=== PATIENT | male | born 1970 | race Caucasian/White ===

== ENCOUNTER → 2016-08-25 | Outpatient (CLI) | payer OTHER ==
[~2016-08-25] MED LIST: ADVIN25/60 INH; ALBU1AER9 INH; AMOX875T PO; ASTN NAE; AZITTAB PO; CEPH500C PO; CHOL100010 PO; CHOLCAP5 PO; DIME1CAP2 PO; FLNIN/ NAE; GADAVIST IV PRN; LPT/40 PO; LPT40 PO; MECL1TAB42 PO; MELO15TA4 PO; METH4PAK PO; NCDT21X TD; OMEP20CA9 PO; PRED20TA PO; RANI150T2 PO; TAMS0.4C38 PO; ZNTT/150 PO
[2016-08-25 13:10] LABS: BASO % 0.3 %; BASO ABS # 0.02 K/uL (0-0.2); COMPLETE YES; EOS % 0.5 %; HEMATOCRIT 43.1 % (42-52); IG% 0.3 %; LYMPH % 19.5 %; LYMPH ABS # 1.27 K/uL (1.2-3.4); MEAN CORPUSCULAR HEMOGLOBIN 31.6 pg (25-34); MEAN CORPUSCULAR HGB CONC 35.5 g/dl (32-36); MEAN PLATELET VOLUME 11.3 fL (7.4-10.4); MONO % 9.8 %; NEUT % 69.6 %; PLATELET COUNT 220 K/uL (130-400); RED BLOOD COUNT 4.84 M/uL (4.7-6.1); WHITE BLOOD COUNT 6.51 K/uL (4.8-10.8)
[2016-08-25 13:41] LABS: ALT/SGPT 65 U/L (12-78); BLOOD UREA NITROGEN 16 mg/dl (7-18); BUN/CREATININE RATIO 17.1 (10-20); CALCIUM 9.4 mg/dl (8.5-10.1); CARBON DIOXIDE 25 mmol/L (21-32); CHLORIDE 105 mmol/L (98-107); CREATININE 0.94 mg/dl (0.60-1.40); GLUCOSE 78 mg/dl (70-99); POTASSIUM 4.1 mmol/L (3.5-5.1); SODIUM 140 mmol/L (136-145)
[2016-08-25 13:44] LABS: ALB/GLOB RATIO 1.1 (0.9-2); ALKALINE PHOSPHATASE 63 U/L (45-117); AST/SGOT 29 U/L (15-37)
--- NOTE | 2016-08-25 13:50 | DIAGNOSTIC IMAGING REPORT ---
MRI OF THE BRAIN WITHOUT AND WITH IV CONTRAST CLINICAL HISTORY: Multiple sclerosis, new onset headaches, visual disturbances. Burning sensation. COMPARISON STUDY: 08/16/2014 TECHNIQUE: MRI of the brain was performed from the vertex to the skull base utilizing various T1 and T2 weighted sequences. Following the IV administration of 8 mL of Gadavist contrast, additional enhanced images were obtained. FINDINGS: Sagittal T1, axial diffusion, proton density and T2 weighted axial, coronal FLAIR, and pre and post axial T1-weighted images were acquired. These were supplemented with post gadolinium coronal T1 weighted images. No intra or extra-axial mass lesions are visualized. Axial diffusion-weighted images reveal no evidence of acute or subacute infarction. There is no evidence of ventricular dilatation. Proton density T2-weighted and FLAIR images reveal a stable linear focus of increased T2 and FLAIR signal adjacent to the atrium of the right lateral ventricle. There are also two stable punctate foci of increased T2 signal within the left frontal white matter. No new or enlarging lesions are visualized. There are no abnormal flow voids. There is no evidence of pathologic enhancement. IMPRESSION: 1. No evidence of acute or subacute infarction 2. No evidence of intracranial mass. 3. Persistent foci of increased T2 and FLAIR signal within the left frontal white matter, and in the right optic radiations adjacent to the atrium of the right lateral ventricle. Electronically signed by: Kingston Lr M.D. 08/25/2016 1:48 PM Dictated Date/Time: 08/25/2016 1:37 PM
== END | disposition home or self-care (01) ==
LOC: C.MRI 11:45
PROVIDERS: ATTEND Psychiatry & Neurology Neurology
DX: G35 Multiple sclerosis (principal); H53.9 Unspecified visual disturbance; M54.2 Cervicalgia; R20.8 Other disturbances of skin sensation; E55.9 Vitamin D deficiency, unspecified

== ENCOUNTER 2016-09-01 20:12 | Emergency (ER) | payer OTHER ==
[~2016-09-01] VITALS: Ht 175.3 cm; Wt 86.0 kg
[~2016-09-01 20:12] MED LIST changes: -ADVIN25/60 INH; -AMOX875T PO; -ASTN NAE; -AZITTAB PO; -CEPH500C PO; -CHOLCAP5 PO; -DIME1CAP2 PO; -FLNIN/ NAE; -GADAVIST IV PRN; -LPT40 PO; -MELO15TA4 PO; -METH4PAK PO; -NCDT21X TD; -OMEP20CA9 PO; -PRED20TA PO; -RANI150T2 PO; -TAMS0.4C38 PO
[2016-09-01 20:22] VITALS: BP 120/73; TEMP 36.7; Ht 175.3 cm; Wt 86.0 kg
[2016-09-01] MEDS ORDERED: MELO15TA4 PO (20:53)
--- NOTE | 2016-09-01 21:18 | DIAGNOSTIC IMAGING REPORT ---
CHEST 2 VIEWS ROUTINE CLINICAL HISTORY: cough dyspnea COMPARISON STUDY: 05/06/2015 FINDINGS: The bones soft tissues and hemidiaphragms are normal. The cardiomediastinal silhouette is normal. The lungs are clear. The pulmonary vasculature is normal. IMPRESSION: Negative chest. Electronically signed by: Rolf Gomez M.D. 09/01/2016 9:17 PM Dictated Date/Time: 09/01/2016 9:16 PM
--- NOTE | 2016-09-01 22:35 | DIAGNOSTIC IMAGING REPORT ---
SINUS CT CT DOSE: 754.51 mGy.cm HISTORY: Pain chronic sinus pressure, hx sinus surgery TECHNIQUE: Multiaxial CT images of the paranasal sinuses were performed and reformatted in the coronal plane without the use of contrast. COMPARISON: 06/17/2008 FINDINGS: The sphenoid sinuses are clear. Moderate mucosal thickening of the central more significant mucosal thickening of the anterior ethmoids. Minimal polypoid change deep tendon aspect left maxillary sinus. Estimated units are patent bilaterally. There is minimal hyperplastic changes the nasal turbinates. The mastoid air cells are clear. The bilateral ostiomeatal units are patent. The orbits are unremarkable. IMPRESSION: 1. Moderate to rather significant mucosal thickening of the mid and anterior ethmoid sinuses. 2. Minimal diffuse retention cyst change left maxillary sinus. 3. Gastrostomy units are patent bilaterally. 4. No evidence for bony destructive process. Electronically signed by: Rolf Gomez M.D. 09/01/2016 10:34 PM Dictated Date/Time: 09/01/2016 10:32 PM
[2016-09-01] MEDS ORDERED: PRED20TA PO (23:10)
[2016-09-01] MEDS ORDERED: AMOX875T PO (23:10)
--- NOTE | 2016-09-01 23:11 | EMERGENCY ROOM VISIT NOTE ---
History First contact with patient: 20:38 Chief Complaint: COUGH Stated Complaint: EYE PAIN, COUGH, STUFFY NOSE Nursing Triage Summary: Patient reports productive cough x1 week with yellow/green sputum. Patient also has runny nose and pain in bilateral eyes. Denies shortness of breath. History of Present Illness The patient is a 45 year old male who presents to the Emergency Room with complaints of cough and sinus pressure for the past one week. The patient states that he has had issues with his sinuses off and on for a few months. He states that over the past week, he has had pain behind his eyes and has been coughing up yellow/green sputum. He also reports nasal congestion. He denies any shortness of breath or chest pain. He rates his overall discomfort a 4/10 and has not been taking any medication at home. The patient does report he took an antibiotic for sinusitis a few months ago, but has not had anything recently. He denies any fevers/chills, neck pain/stiffness, sore throat or earaches. Review of Systems A complete 10-point Review of Systems was discussed with the patient, with pertinent positives and negatives listed in the History of Present Illness. All remaining Review of Systems questions can be considered negative unless otherwise specified. Past Medical/Surgical History Medical Problems: (1) Acute bronchitis (2) Acute bronchitis (3) Asthma, Unspecified, W (Acute) Exacerbation (4) Bilateral inguinal hernia (5) Bronchitis (6) Bronchitis (7) Chest pain (8) Chest pain (9) Constipation (10) Cough (11) Cough (12) Depression (13) Dizziness (14) Dry socket (15) Dry socket (16) Esophageal Reflux (17) Hyperlipidemia, Unspecified (18) Lateral epicondylitis (19) Lumbago (20) MS (multiple sclerosis) (21) MS (multiple sclerosis) (22) Obsessive-Compulsive Dis (23) Pain, dental (24) Precordial chest pain (25) Sore throat (26) Tobacco abuse Family History Cancer Diabetes mellitus Heart disease Hypertension Social History Smoking Status: Current Every Day Smoker Alcohol Use: none Drug Use: none Marital Status: Housing Status: lives with family Occupation Status: unemployed, disabled Current/Historical Medications Scheduled Amoxicillin & Pot Clavulanate (Augmentin 875-125 mg), 1 TAB PO BID Atorvastatin (Atorvastatin Calcium), 40 MG PO HS Cholecalciferol (Vitamin D3), 5,000 INTER.UNIT PO DAILY Dimethyl Fumarate (Tecfidera), 240 MG PO BID Meloxicam (Meloxicam), 15 MG PO DAILY Prednisone (Prednisone), 0 PO DAILY Scheduled PRN Azelastine Hcl (Astelin Nasal [place]), 1-2 SPRAYS HENRI BID PRN for Nasal Congestion Fluticasone Propionate (Fluticasone Propionate), 1 SPRAY HENRI BID PRN for Allergy Symptoms Ranitidine HCl (Ranitidine HCl), 150 MG PO BID PRN for GI Upset Allergies Coded Allergies: No Known Allergies (Verified , 01/31/16) Physical Exam Vital Signs Date Time Temp Pulse Resp B/P Pulse Ox O2 Delivery O2 Flow Rate FiO2 09/01/16 23:29 65 18 97 09/01/16 20:22 36.7 80 20 120/73 97 Room Air Physical Exam VITALS: Vitals are noted on the nurse's note and reviewed by myself. Vital signs stable. GENERAL: This is a 45-year-old male, in no acute distress, nondiaphoretic, well- developed well-nourished. SKIN: Capillary reflex less than 2 seconds. HEENT: Normocephalic. PERRLA. EOMI. Nares patent. Bilateral maxillary sinus tenderness. Mucous membranes moist. Neck is supple without nuchal rigidity. No meningismus. HEART: Regular rate and rhythm without murmurs gallops or rubs. LUNGS: Clear to auscultation bilaterally without wheezes, rales or rhonchi. NEURO: Patient was alert and oriented to person place and time. Medical Decision & Procedures ER Provider Diagnostic Interpretation: CHEST 2 VIEWS ROUTINE FINDINGS: The bones soft tissues and hemidiaphragms are normal. The cardiomediastinal silhouette is normal. The lungs are clear. The pulmonary vasculature is normal. IMPRESSION: Negative chest. SINUS CT FINDINGS: The sphenoid sinuses are clear. Moderate mucosal thickening of the central more significant mucosal thickening of the anterior ethmoids. Minimal polypoid change deep tendon aspect left maxillary sinus. Estimated units are patent bilaterally. There is minimal hyperplastic changes the nasal turbinates. The mastoid air cells are clear. The bilateral ostiomeatal units are patent. The orbits are unremarkable. IMPRESSION: 1. Moderate to rather significant mucosal thickening of the mid and anterior ethmoid sinuses. 2. Minimal diffuse retention cyst change left maxillary sinus. 3. Gastrostomy units are patent bilaterally. 4. No evidence for bony destructive process. Medications Administered Medications (Trade) Dose Ordered Sig/Farshad Route Start Time Stop Time Status Last Admin Dose Admin Amoxicillin/ Clavulanate Potassium (Augmentin Tab) 875 mg ONE ONCE PO 09/01/16 23:15 09/01/16 23:16 DC 09/01/16 23:15 875 MG Medical Decision Differential diagnosis includes sinusitis, pneumonia, upper respiratory infection, meningitis, encephalitis, among others. The patient was hydrated as above. Chest x-ray and sinus CT were performed. Chest x-ray was negative. Sinus CT did show some significant sinus disease. The patient reports a rather significant history of sinus disease and I do feel he should follow up with an ENT. He will be placed on a course of antibiotics and steroids for his current symptoms. He was instructed to return immediately with worsening symptoms, otherwise should follow-up with his primary care provider and ENT. The patient was independently evaluated by Dr. Tucker, ED attending physician, who agreed with my assessment and treatment plan. The patient verbalized understanding of my assessment and treatment plan and was discharged home in good condition. Departure Information Dispostion Home / Self-Care Condition GOOD Prescriptions Prednisone (Prednisone) 20 Mg Tab 0 PO DAILY, #18 TAB 3 DAILY FOR 3 DAYS, THEN 2 DAILY FOR 3 DAYS, THEN 1 DAILY FOR 3 DAYS. Prov: Kathleen Carlson PA-C 09/01/16 Amoxicillin & Pot Clavulanate (Augmentin 875-125 mg) 1 Tab Tab 1 TAB PO BID for 14 Days, #28 TAB Prov: Kathleen Carlson PA-C 09/01/16 Referrals Ivan Izaguirre, D.OObey (PCP) Patient Instructions My [facility] Additional Instructions You were prescribed Augmentin to be taken twice daily as prescribed. This is an antibiotic. All antibiotics have the potential to cause diarrhea. Stop this medication and contact a medical provider if you were to develop any significant adverse side effects including: wheezing, shortness of breath, passing out, vomiting, or a diffuse rash. Always take antibiotics as directed and COMPLETE the ENTIRE course regardless of the improvement of your symptoms. Take the prednisone as prescribed. For pain control, you can use the following [id number] medicines (if >12 yo): - Regular strength (325mg/tab) Tylenol (acetaminophen) 2 tabs every 4-6 hours as needed. Do not exceed 12 tablets in a 24 hour period. Avoid taking more than 4 grams (4000 mg) of Tylenol per day. This includes any other sources of acetaminophen you may take on a regular basis. - Regular strength (200 mg/tab) Advil (ibuprofen) 1-2 tabs every 4-6 hours as needed. Do not exceed a dose of 3200 mg per day. Follow-up with your primary care provider and your ENT specialist within 1-2 weeks. Return to the emergency department with worsening pain, the worst headache of your life, neck pain/stiffness, high fevers, or any other new/concerning symptoms.
[2016-09-01] MEDS ORDERED: AMOXICILLIN/CLAVULANATE TAB 875 MG TAB PO ONE (23:15)
[2016-09-01 23:29] VITALS: PULSE 65; O2SAT 97
--- NOTE | 2016-09-01 23:37 | EMERGENCY ROOM VISIT NOTE ---
ED Visit Note First contact with patient: 20:38 I have personally seen and evaluated the patient with the physician operator/assistant foreman. I agree with the diagnostic/management decisions and have personally been involved in these decisions and agree with the diagnosis.
[2017-03-11] MEDS ORDERED: FLNIN/ NAE (01:22)
[2017-03-11] MEDS ORDERED: LPT40 PO (20:53)
[2017-03-11] MEDS ORDERED: RANI150T2 PO (20:53)
[2017-03-11] MEDS ORDERED: CHOLCAP5 PO (20:54)
[2017-03-11] MEDS ORDERED: ASTN NAE (20:56)
== END 2016-09-01 23:30 | disposition home or self-care (01) ==
LOC: C.EDB 20:13 → C.EDD 23:30
DX: R05 Cough (principal); J32.9 Chronic sinusitis, unspecified; J45.909 Unspecified asthma, uncomplicated; E78.5 Hyperlipidemia, unspecified; F32.9 Major depressive disorder, single episode, unspecified; K21.9 Gastro-esophageal reflux disease without esophagitis; G35 Multiple sclerosis; F17.200 Nicotine dependence, unspecified, uncomplicated; Z79.899 Other long term (current) drug therapy; Z80.9 Family history of malignant neoplasm, unspecified; Z83.3 Family history of diabetes mellitus; Z82.49 Family history of ischemic heart disease and other diseases of the circulatory system

== ENCOUNTER 2016-11-02 09:40 | Emergency (ER) | payer OTHER ==
[~2016-11-02] VITALS: Ht 175.3 cm; Wt 88.0 kg
[~2016-11-02 09:40] MED LIST changes: -ALBU1AER9 INH; -CHOL100010 PO; -LPT/40 PO; -MECL1TAB42 PO; +MELO15TA4 PO; +PRED20TA PO; -ZNTT/150 PO
[2016-11-02 09:42] VITALS: TEMP 36.4
--- NOTE | 2016-11-02 09:52 | EMERGENCY ROOM VISIT NOTE ---
History Report prepared by Fede: Micha Alonso Under the Supervision of: Soniya OrtizO. First contact with patient: 09:49 Chief Complaint: DIZZY Stated Complaint: DIZZY, NAUSEA History of Present Illness The patient is a 46 year old male who presents to the Emergency Room with complaints of persistent dizziness that started prior to arrival this morning. He says that he woke up feeling very nauseous as well. Per the patient's , the patient was hitting thomas. The patient says when he tried to walk he felt off balance, especially when turning his head. He felt like the room was spinning. The patient says that he may have had an episode of dizziness and nausea like this when he was much younger. He says that he has been having sinus congestion for a while now, and was put on Augmentin 3 weeks ago by his ENT doctor. His congestion was accompanied with headaches, and a bit of chest pain. His congestion has been getting better. He denies any ear aches, ear ringing, heart palpitations, or shortness of breath. The patient takes medication for multiple sclerosis and cholesterol. Source of History: patient, family Onset: Prior to arrival this morning upon waking Position: other (global - dizziness) Timing: other (persistent) Modifying Factors (Worsening): movement Associated Symptoms: + chest pain, + headache, + nausea, No SOB Note: Associated symptoms: [place] off balance. Has had sinus congestion for multiple weeks. Denies ear aches, ear ringing, heart palpitations. Review of Systems See HPI for pertinent positives & negatives. A total of 10 systems reviewed and were otherwise negative. Past Medical & Surgical Medical Problems: (1) Acute bronchitis (2) Acute bronchitis (3) Asthma, Unspecified, W (Acute) Exacerbation (4) Bilateral inguinal hernia (5) Bronchitis (6) Bronchitis (7) Chest pain (8) Chest pain (9) Constipation (10) Cough (11) Cough (12) Depression (13) Dizziness (14) Dry socket (15) Dry socket (16) Esophageal Reflux (17) Hyperlipidemia, Unspecified (18) Lateral epicondylitis (19) Lumbago (20) MS (multiple sclerosis) (21) MS (multiple sclerosis) (22) Obsessive-Compulsive Dis (23) Pain, dental (24) Precordial chest pain (25) Sore throat (26) Tobacco abuse Family History Cancer Diabetes mellitus Heart disease Hypertension Social History Smoking Status: Former Smoker Alcohol Use: none Drug Use: none Marital Status: Housing Status: lives with family Occupation Status: unemployed, disabled Current/Historical Medications Scheduled Amoxicillin & Pot Clavulanate (Augmentin 875-125 mg), 1 TAB PO BID Atorvastatin (Atorvastatin Calcium), 40 MG PO HS Cholecalciferol (Vitamin D3), 5,000 INTER.UNIT PO DAILY Dimethyl Fumarate (Tecfidera), 240 MG PO BID Meclizine Hcl (Meclizine Hcl), 1 TAB PO TID Methylprednisolone (Medrol Dosepak), 0 PO DAILY Nicotine (Nicoderm Cq 21MG Patch), 1 PATCH TD DAILY Scheduled PRN Azelastine Hcl (Astelin Nasal [place]), 1-2 SPRAYS HENRI BID PRN for Nasal Congestion Fluticasone Propionate (Fluticasone Propionate), 1 SPRAY HENRI BID PRN for Allergy Symptoms Ranitidine HCl (Ranitidine HCl), 150 MG PO BID PRN for GI Upset Allergies Coded Allergies: No Known Allergies (Verified , 11/02/16) Physical Exam Vital Signs Date Time Temp Pulse Resp B/P Pulse Ox O2 Delivery O2 Flow Rate FiO2 11/02/16 12:05 55 18 114/78 95 Room Air 11/02/16 11:00 57 14 119/77 95 Room Air 11/02/16 10:14 63 17 122/77 97 Room Air 69 124/85 86 127/81 11/02/16 10:14 67 11/02/16 10:11 95 Room Air 11/02/16 09:42 36.4 64 18 119/80 96 Room Air Physical Exam GENERAL: Patient is awake, alert, and in no acute distress. Patient is resting comfortably and showing no signs of anxiety EYES: The conjunctivae are clear. The pupils are round and reactive. EARS, NOSE, MOUTH AND THROAT: The nose is without any evidence of any deformity. Mucous membranes are moist tongue is midline TMs clear bilaterally. NECK: The neck is nontender and supple. RESPIRATORY: Normal respiratory effort is noted there is no evidence of wheezing rhonchi or rales CARDIOVASCULAR: Regular rate and rhythm noted there no murmurs rubs or gallops normal S1 normal S2 GASTROINTESTINAL: The abdomen is soft. Bowel sounds are present in all quadrants. Abdomen is nontender MUSCULOSKELETAL/EXTREMITIES: There is no evidence of gross deformity full range of motion is noted in the hips and shoulders SKIN: There is no obvious evidence of any rash. There are no petechiae, pallor or cyanosis noted. NEUROLOGIC: Patient is awake alert and oriented x3 strength is symmetric patellar reflexes are 2+ bilaterally. Rapid alternating movements were symmetric. Medical Decision & Procedures ER Provider Diagnostic Interpretation: Radiology results as stated below per my review and radiologist interpretation: CT SCAN OF THE BRAIN WITHOUT IV CONTRAST CLINICAL HISTORY: Weakness. Change in mental status. Dizziness. COMPARISON STUDY: CT of the brain dated 01/25/2007. MRI of the brain dated 08/25/2016. TECHNIQUE: Unenhanced axial CT scan of the brain is performed from the vertex to the skull base. Automated dose control exposure was utilized. CT DOSE: 537.48 mGy.cm FINDINGS: Brain parenchyma: The brain parenchyma is normal in appearance. There is no hemorrhage, mass effect, or evidence of acute territorial ischemia by CT criteria. [place]-white matter is preserved. No extra-axial fluid collection is seen. Ventricles, sulci, cisterns: Normal in configuration. Intracranial vasculature: The visualized intracranial vasculature at the skull base is normal in appearance. Calvarium: Unremarkable. Sinuses and mastoids: There is mucosal thickening present within several ethmoid sinuses. The remaining visualized paranasal sinuses are clear. The mastoid air cells are well pneumatized. Orbits: The bony orbits are grossly intact. IMPRESSION: No acute intracranial abnormality. Electronically signed by: Abilio Gonzales M.D. 11/02/2016 10:39 AM Dictated Date/Time: 11/02/2016 10:38 AM CHEST ONE VIEW PORTABLE CLINICAL HISTORY: Altered mental status. Weakness. COMPARISON STUDY: Chest radiograph September 01, 2016. FINDINGS: Lung volumes are normal. There is no consolidation. No pneumothorax or pleural effusion is present. Cardiomediastinal silhouette is normal. There is no evidence of pulmonary edema. IMPRESSION: No acute cardiopulmonary findings. Electronically signed by: Akhil Gonzalez M.D. 11/02/2016 10:14 AM Dictated Date/Time: 11/02/2016 10:14 AM Laboratory Results 11/02/16 09:51 Red Blood Count 4.63, Mean Corpuscular Volume 87.3, Mean Corpuscular Hemoglobin 30.9, Mean Corpuscular Hemoglobin Concent 35.4, Mean Platelet Volume 10.4, Neutrophils (%) (Auto) 50.0, Lymphocytes (%) (Auto) 37.0, Monocytes (%) (Auto) 10.0, Eosinophils (%) (Auto) 1.9, Basophils (%) (Auto) 0.9, Neutrophils # (Auto ) 2.16, Lymphocytes # (Auto) 1.60, Monocytes # (Auto) 0.43, Eosinophils # (Auto ) 0.08, Basophils # (Auto) 0.04 11/02/16 09:51 Test 11/02/16 09:51 11/02/16 10:09 11/02/16 11:45 White Blood Count 4.32 K/uL (4.8-10.8) Red Blood Count 4.63 M/uL (4.7-6.1) Hemoglobin 14.3 g/dL (14.0-18.0) Hematocrit 40.4 % (42-52) Mean Corpuscular Volume 87.3 fL (80-100) Mean Corpuscular Hemoglobin 30.9 pg (25-34) Mean Corpuscular Hemoglobin Concent 35.4 g/dl (32-36) Platelet Count 222 K/uL (130-400) Mean Platelet Volume 10.4 fL (7.4-10.4) Neutrophils (%) (Auto) 50.0 % Lymphocytes (%) (Auto) 37.0 % Monocytes (%) (Auto) 10.0 % Eosinophils (%) (Auto) 1.9 % Basophils (%) (Auto) 0.9 % Neutrophils # (Auto) 2.16 K/uL (1.4-6.5) Lymphocytes # (Auto) 1.60 K/uL (1.2-3.4) Monocytes # (Auto) 0.43 K/uL (0.11-0.59) Eosinophils # (Auto) 0.08 K/uL (0-0.5) Basophils # (Auto) 0.04 K/uL (0-0.2) RDW Standard Deviation 40.3 fL (36.4-46.3) RDW Coefficient of Variation 12.5 % (11.5-14.5) Immature Granulocyte % (Auto) 0.2 % Immature Granulocyte # (Auto) 0.01 K/uL (0.00-0.02) Prothrombin Time 10.6 SECONDS (9.0-12.0) Prothromb Time International Ratio 1.0 (0.9-1.1) Activated Partial Thromboplast Time 26.8 SECONDS (21.0-31.0) Partial Thromboplastin Ratio 1.0 Anion Gap 7.0 mmol/L (3-11) Est Creatinine Clear Calc Drug Dose 105.5 ml/min Estimated GFR () 110.7 Estimated GFR (Non- 95.5 BUN/Creatinine Ratio 18.3 (10-20) Calcium Level 8.8 mg/dl (8.5-10.1) Magnesium Level 2.3 mg/dl (1.8-2.4) Total Bilirubin 0.3 mg/dl (0.2-1) Direct Bilirubin < 0.1 mg/dl (0-0.2) Aspartate Amino Transf (AST/SGOT) 35 U/L (15-37) Alanine Aminotransferase (ALT/SGPT) 87 U/L (12-78) Alkaline Phosphatase 63 U/L (45-117) Troponin I < 0.015 ng/ml (0-0.045) Total Protein 7.4 gm/dl (6.4-8.2) Albumin 3.9 gm/dl (3.4-5.0) Thyroid Stimulating Hormone (TSH) 1.190 uIu/ml (0.300-4.500) Bedside Glucose 98 mg/dl (70-99) Urine Color YELLOW Urine Appearance CLEAR (CLEAR) Urine pH 7.5 (4.5-7.5) Urine Specific [place] 1.012 (1.000-1.030) Urine Protein NEG (NEG) Urine Glucose (UA) NEG (NEG) Urine Ketones NEG (NEG) Urine Occult Blood NEG (NEG) Urine Nitrite NEG (NEG) Urine Bilirubin NEG (NEG) Urine Urobilinogen NEG (NEG) Urine Leukocyte Esterase NEG (NEG) Laboratory results per my review. Medications Administered Medications (Trade) Dose Ordered Sig/Farshad Route Start Time Stop Time Status Last Admin Dose Admin Meclizine HCl (Antivert Tab) 25 mg NOW STAT PO 11/02/16 09:56 11/02/16 09:58 DC 11/02/16 10:20 25 MG ECG Indication: nausea Rate (beats per minute): 62 Rhythm: normal sinus Findings: no ectopy, other (no acute ST segment abnormalities) Change: no significant change (from May 07 2015) ED Course 0951: The patient was evaluated in room A10. A complete history and physical examination were performed. 0956: Ordered Antivert Tab 25 mg PO. 1107: I reevaluated the patient and he is resting comfortably. 1203: I discussed the patient with Dr. Marco A DING neurology. 1207:: Upon reevaluation, the patient is resting comfortably. I discussed the results and treatment plan with him. He verbalized agreement of the treatment plan. He was discharged home. Medical Decision Triage Nursing notes reviewed. Differential diagnosis: Etiologies such as benign positional vertigo, dehydration, hypovolemia, anemia, tumor, infection, hypoglycemia, electrolyte abnormalities, cardiac sources, intracerebral event, toxicologic, neurologic, as well as others were entertained. The patient is a 46-year-old male who presented to the emergency department for an evaluation of vertigo. The patient has a history of MS. His CAT scan did not show any acute disease. He was treated with meclizine in emergency department. Given the patient's history I discussed his case with his primary neurologist. At this time he feels if it is related to an MS flare that a course of steroids as well as meclizine would be a good choice and he is agreed to follow-up the patient in the office for further management and disposition. The patient had a recent MRI the brain which did not show any lesions in the posterior fossa. He may require another MRI if his symptoms do not appear to be consistent with chest unspecified vertigo or an inner ear issue. Consults Time Called: 1150 Consulting Physician: Dr. Marco A DING neurology Returned Call: 1203 I discussed the patient with Dr. Marco A DING neurology. Impression Primary Impression: Vertigo Scribe Attestation The scribe's documentation has been prepared under my direction and personally reviewed by me in its entirety. I confirm that the note above accurately reflects all work, treatment, procedures, and medical decision making performed by me. Departure Information Dispostion Home / Self-Care Prescriptions Meclizine Hcl (MECLIZINE HCL) 25 Mg Tab 1 TAB PO TID, #30 TAB Prov: Karlo Bunch, DO 11/02/16 Methylprednisolone (MEDROL DOSEPAK) 4 Mg Perez 0 PO DAILY, #1 PKT Prov: Karlo Bunch, 11/02/16 Referrals Ivan Izaguirre D.O. (PCP) Forms HOME CARE DOCUMENTATION FORM, IMPORTANT VISIT INFORMATION Patient Instructions ED Vertigo Unspecified, My [facility] Additional Instructions Continue all medications as prescribed. Follow-up with your family DrObey and your neurologist as soon as possible. Return to the emergency department if symptoms change worsen or the need arises..
[2016-11-02] MEDS ORDERED: MECLIZINE HCL 25 MG TAB PO STA (09:56)
[2016-11-02 10:08] LABS: BASO % 0.9 %; BASO ABS # 0.04 K/uL (0-0.2); COMPLETE YES; EOS % 1.9 %; HEMATOCRIT 40.4 % (42-52); IG% 0.2 %; MEAN CELL VOLUME 87.3 fL (80-100); MEAN CORPUSCULAR HEMOGLOBIN 30.9 pg (25-34); MEAN CORPUSCULAR HGB CONC 35.4 g/dl (32-36); MEAN PLATELET VOLUME 10.4 fL (7.4-10.4); PLATELET COUNT 222 K/uL (130-400); RED BLOOD COUNT 4.63 M/uL (4.7-6.1); WHITE BLOOD COUNT 4.32 K/uL (4.8-10.8)
[2016-11-02 10:11] VITALS: O2SAT 95
[2016-11-02 10:17] VITALS: Ht 175.3 cm; Wt 88.0 kg
--- NOTE | 2016-11-02 10:17 | DIAGNOSTIC IMAGING REPORT ---
CHEST ONE VIEW PORTABLE CLINICAL HISTORY: Altered mental status. Weakness. COMPARISON STUDY: Chest radiograph September 01, 2016. FINDINGS: Lung volumes are normal. There is no consolidation. No pneumothorax or pleural effusion is present. Cardiomediastinal silhouette is normal. There is no evidence of pulmonary edema. IMPRESSION: No acute cardiopulmonary findings. Electronically signed by: Akhil Gonzalez M.D. 11/02/2016 10:14 AM Dictated Date/Time: 11/02/2016 10:14 AM
[2016-11-02 10:25] LABS: PROTHROMBIN TIME (PATIENT) 10.6 SECONDS (9.0-12.0)
[2016-11-02 10:29] LABS: ALT/SGPT 87 U/L (12-78); BLOOD UREA NITROGEN 17 mg/dl (7-18); BUN/CREATININE RATIO 18.3 (10-20); CALCIUM 8.8 mg/dl (8.5-10.1); CARBON DIOXIDE 29 mmol/L (21-32); CHLORIDE 103 mmol/L (98-107); CREATININE 0.94 mg/dl (0.60-1.40); GLUCOSE 103 mg/dl (70-99); MAGNESIUM 2.3 mg/dl (1.8-2.4); POTASSIUM 3.8 mmol/L (3.5-5.1); SODIUM 139 mmol/L (136-145)
[2016-11-02 10:39] LABS: ALKALINE PHOSPHATASE 63 U/L (45-117); AST/SGOT 35 U/L (15-37)
[2016-11-02] MEDS ORDERED: AMOX875T PO (10:39)
[2016-11-02] MEDS ORDERED: NCDT21X TD (10:39)
--- NOTE | 2016-11-02 10:41 | DIAGNOSTIC IMAGING REPORT ---
CT SCAN OF THE BRAIN WITHOUT IV CONTRAST CLINICAL HISTORY: Weakness. Change in mental status. Dizziness. COMPARISON STUDY: CT of the brain dated 01/25/2007. MRI of the brain dated 08/25/2016. TECHNIQUE: Unenhanced axial CT scan of the brain is performed from the vertex to the skull base. Automated dose control exposure was utilized. CT DOSE: 537.48 mGy.cm FINDINGS: Brain parenchyma: The brain parenchyma is normal in appearance. There is no hemorrhage, mass effect, or evidence of acute territorial ischemia by CT criteria. Viveros-white matter is preserved. No extra-axial fluid collection is seen. Ventricles, sulci, cisterns: Normal in configuration. Intracranial vasculature: The visualized intracranial vasculature at the skull base is normal in appearance. Calvarium: Unremarkable. Sinuses and mastoids: There is mucosal thickening present within several ethmoid sinuses. The remaining visualized paranasal sinuses are clear. The mastoid air cells are well pneumatized. Orbits: The bony orbits are grossly intact. IMPRESSION: No acute intracranial abnormality. Electronically signed by: Abilio Gonzales M.D. 11/02/2016 10:39 AM Dictated Date/Time: 11/02/2016 10:38 AM
[2016-11-02 12:05] VITALS: BP 114/78; PULSE 55; O2SAT 95
[2016-11-02] MEDS ORDERED: METH4PAK PO (12:07)
[2016-11-02] MEDS ORDERED: MECL1TAB42 PO (12:07)
[2016-11-02 12:19] LABS: URINE APPEARANCE CLEAR (CLEAR); URINE BILIRUBIN NEG (NEG); URINE COLOR YELLOW; URINE NITRITE NEG (NEG); URINE PH 7.5 (4.5-7.5); URINE SPECIFIC GRAVITY 1.012 (1.000-1.030); UROBILINOGEN NEG (NEG)
[2016-11-02 12:51] LABS: MANUAL MICROSCOPIC REQUIRED? NO; REVIEW REQ? NO
[2017-03-11] MEDS ORDERED: FLNIN/ NAE (01:22)
[2017-03-11] MEDS ORDERED: RANI150T2 PO (20:53)
[2017-03-11] MEDS ORDERED: LPT40 PO (20:53)
[2017-03-11] MEDS ORDERED: CHOLCAP5 PO (20:54)
[2017-03-11] MEDS ORDERED: ASTN NAE (20:56)
== END 2016-11-02 12:18 | disposition home or self-care (01) ==
LOC: C.EDB 09:42 → C.EDA 12:18
DX: R42 Dizziness and giddiness (principal); E78.5 Hyperlipidemia, unspecified; K21.9 Gastro-esophageal reflux disease without esophagitis; G35 Multiple sclerosis; F17.200 Nicotine dependence, unspecified, uncomplicated; F32.9 Major depressive disorder, single episode, unspecified; J45.909 Unspecified asthma, uncomplicated; Z86.19 Personal history of other infectious and parasitic diseases; Z87.891 Personal history of nicotine dependence; Z79.899 Other long term (current) drug therapy; Z80.9 Family history of malignant neoplasm, unspecified; Z83.3 Family history of diabetes mellitus; Z82.49 Family history of ischemic heart disease and other diseases of the circulatory system

== ENCOUNTER 2016-12-13 19:03 | Emergency (ER) | payer OTHER ==
[~2016-12-13] VITALS: Ht 175.3 cm; Wt 90.6 kg
[~2016-12-13 19:03] MED LIST changes: +AMOX875T PO; +MECL1TAB42 PO; -MELO15TA4 PO; +NCDT21X TD; -PRED20TA PO
[2016-12-13 19:05] VITALS: Ht 175.3 cm; Wt 90.6 kg
--- NOTE | 2016-12-13 19:20 | EMERGENCY ROOM VISIT NOTE ---
History Report prepared by [place]: Maxine Dietz Under the Supervision of: Dr. Joe Morales M.D. First contact with patient: 19:08 Chief Complaint: FEVER Stated Complaint: ACHES ALL OVER,FEVER 102 History of Present Illness The patient is a 46 year old male who presents to the Emergency Room with complaints of a worsening fever that started earlier today. He checked his temperature at home and it was 102 degrees. He reports he woke up with "pain all over" his body, especially in his back, nausea, chills, a runny nose and a cough. He rates his discomfort as a 7/10 and notes he has not taken any medication for his symptoms yet. He admits to diarrhea earlier this morning but denies any urinary symptoms. He also denies any chest pain, shortness of breath or rashes. He has not experienced any weakness in his legs or loss of bowel or bladder function. The patient is a former smoker who quit approximately 2 months ago. Source of History: patient Onset: Earlier today Position: other (global) Timing: worsening Associated Symptoms: + back pain, + chills, + cough, + diarrhea, + nausea, No SOB, No chest pain, No rash, No urinary symptoms Review of Systems See HPI for pertinent positives & negatives. A total of 10 systems reviewed and were otherwise negative. Past Medical & Surgical Medical Problems: (1) Acute bronchitis (2) Acute bronchitis (3) Asthma, Unspecified, W (Acute) Exacerbation (4) Bilateral inguinal hernia (5) Bronchitis (6) Bronchitis (7) Chest pain (8) Chest pain (9) Constipation (10) Cough (11) Cough (12) Depression (13) Dizziness (14) Dry socket (15) Dry socket (16) Esophageal Reflux (17) Hyperlipidemia, Unspecified (18) Lateral epicondylitis (19) Lumbago (20) MS (multiple sclerosis) (21) MS (multiple sclerosis) (22) Obsessive-Compulsive Dis (23) Pain, dental (24) Precordial chest pain (25) Sore throat (26) Tobacco abuse Family History Cancer Diabetes mellitus Heart disease Hypertension Social History Smoking Status: Former Smoker Alcohol Use: none Drug Use: none Marital Status: Housing Status: lives with family Occupation Status: unemployed, disabled Current/Historical Medications Scheduled Atorvastatin (Atorvastatin Calcium), 40 MG PO HS Cholecalciferol (Vitamin D3), 5,000 INTER.UNIT PO DAILY Dimethyl Fumarate (Tecfidera), 240 MG PO BID Meclizine Hcl (Meclizine Hcl), 1 TAB PO TID Scheduled PRN Azelastine Hcl (Astelin Nasal [place]), 1-2 SPRAYS HENRI BID PRN for Nasal Congestion Fluticasone Propionate (Fluticasone Propionate), 1 SPRAY HENRI BID PRN for Allergy Symptoms Ranitidine HCl (Ranitidine HCl), 150 MG PO BID PRN for GI Upset Allergies Coded Allergies: No Known Allergies (Verified , 11/02/16) Physical Exam Vital Signs Date Time Temp Pulse Resp B/P Pulse Ox O2 Delivery O2 Flow Rate FiO2 12/13/16 20:34 37.7 80 18 128/73 95 12/13/16 19:05 37.7 95 20 129/78 98 Room Air Physical Exam GENERAL: Patient is well appearing and in minimal distress. HEENT: No acute trauma, normocephalic atraumatic, mucous membranes moist, bilateral nasal rhinorrhea, no scleral icterus. NECK: No stridor, no adenopathy, no meningismus, trachea is midline. LUNGS: No dyspnea. Clear to auscultation and equal bilaterally. No wheeze, no rhonchi. HEART: Regular rate and rhythm. No murmurs, rubs, gallops appreciated. ABDOMEN: Soft, nontender, bowel sounds positive, no masses appreciated, no peritonitis. BACK: No midline tenderness, no CVA tenderness EXTREMITIES: Normal motion all extremities, no cyanosis, no edema. NEUROLOGIC: Alert and oriented, no acute motor or sensory deficits, no focal weakness, cranial nerves grossly intact. SKIN: No rash, no jaundice, no diaphoresis. Medical Decision & Procedures Laboratory Results 12/13/16 19:20 Red Blood Count 4.90, Mean Corpuscular Volume 87.1, Mean Corpuscular Hemoglobin 31.6, Mean Corpuscular Hemoglobin Concent 36.3, Mean Platelet Volume 10.0, Neutrophils (%) (Auto) 87.2, Lymphocytes (%) (Auto) 6.1, Monocytes (%) (Auto) 6.2, Eosinophils (%) (Auto) 0.2, Basophils (%) (Auto) 0.2, Neutrophils # (Auto) 6.97, Lymphocytes # (Auto) 0.49, Monocytes # (Auto) 0.50, Eosinophils # (Auto) 0.02, Basophils # (Auto) 0.02 12/13/16 19:20 Test 12/13/16 19:20 White Blood Count 8.01 K/uL (4.8-10.8) Red Blood Count 4.90 M/uL (4.7-6.1) Hemoglobin 15.5 g/dL (14.0-18.0) Hematocrit 42.7 % (42-52) Mean Corpuscular Volume 87.1 fL (80-100) Mean Corpuscular Hemoglobin 31.6 pg (25-34) Mean Corpuscular Hemoglobin Concent 36.3 g/dl (32-36) Platelet Count 215 K/uL (130-400) Mean Platelet Volume 10.0 fL (7.4-10.4) Neutrophils (%) (Auto) 87.2 % Lymphocytes (%) (Auto) 6.1 % Monocytes (%) (Auto) 6.2 % Eosinophils (%) (Auto) 0.2 % Basophils (%) (Auto) 0.2 % Neutrophils # (Auto) 6.97 K/uL (1.4-6.5) Lymphocytes # (Auto) 0.49 K/uL (1.2-3.4) Monocytes # (Auto) 0.50 K/uL (0.11-0.59) Eosinophils # (Auto) 0.02 K/uL (0-0.5) Basophils # (Auto) 0.02 K/uL (0-0.2) RDW Standard Deviation 39.8 fL (36.4-46.3) RDW Coefficient of Variation 12.3 % (11.5-14.5) Immature Granulocyte % (Auto) 0.1 % Immature Granulocyte # (Auto) 0.01 K/uL (0.00-0.02) Erythrocyte Sedimentation Rate 8 mm/hr (0-14) Anion Gap 9.0 mmol/L (3-11) Est Creatinine Clear Calc Drug Dose 111.7 ml/min Estimated GFR () 116.6 Estimated GFR (Non- 100.6 BUN/Creatinine Ratio 17.8 (10-20) Calcium Level 8.5 mg/dl (8.5-10.1) Laboratory results as reviewed by me. Medications Administered Medications (Trade) Dose Ordered Sig/Farshad Route Start Time Stop Time Status Last Admin Dose Admin Sodium Chloride (Nss 1000ml) 1,000 ml @ 999 mls/hr Q1H1M STAT IV 12/13/16 19:22 12/13/16 20:22 DC 12/13/16 19:22 999 MLS/HR Ketorolac Tromethamine (Toradol Inj) 30 mg NOW STAT IV 12/13/16 19:22 12/13/16 19:25 DC 12/13/16 19:33 30 MG Ondansetron HCl (Zofran Inj) 4 mg NOW STAT IV 12/13/16 19:22 12/13/16 19:25 DC 12/13/16 19:33 4 MG Acetaminophen (Tylenol Tab) 1,000 mg NOW STAT PO 12/13/16 19:22 12/13/16 19:25 DC 12/13/16 19:33 1,000 MG ED Course 1913: The patient was evaluated in room A3. A complete history and physical exam was performed. 1921: Acetaminophen 1000 mg PO, Zofran 4 mg IV, Toradol 30 mg IV, NSS 1000 ml @ 999 mls/hr IV. 2015: I reevaluated the patient. He is feeling much better and feels ready to go home. I discussed his results and discharge instructions and he verbalized complete understanding and agreement. Medical Decision Differential: Viral, Pharyngitis, Cellulitis, Pneumonia, Influenza, Meningitis, Sepsis, Bacteremia, UTI/Pyelonephritis, Endocrine, Toxicologic, amongst other pathologies entertained. 46 yr old male arrives with fevers, chills, body aches, nausea, diarrhea and runny nose. He looks well and is not septic. Fluids, toradol, tylenol, zofran with vast improvement. With normal ESR I do not feel this is acute bacterial infection, including epidural abscess. He does not have meningitis, sepsis, uri , pna by exam nor history. Symptoms consistent with viral infection. Discussed symptoms requiring return. Impression Primary Impression: Fever Additional Impressions: Body aches URI, acute Scribe Attestation The scribe's documentation has been prepared under my direction and personally reviewed by me in its entirety. I confirm that the note above accurately reflects all work, treatment, procedures, and medical decision making performed by me. Departure Information Dispostion Home / Self-Care Referrals Ivan Izaguirre D.OOeby (PCP) Patient Instructions ED URI Viral, My [facility] Problem Qualifiers Primary Impression: Fever Fever type: unspecified Qualified Codes: R50.9 - Fever, unspecified
[2016-12-13] MEDS ORDERED: SODIUM CHLORIDE 0.9% 1000ML 1,000 ML IV STA (19:22)
[2016-12-13] MEDS ORDERED: ACETAMINOPHEN 500 MG TAB PO STA (19:22)
[2016-12-13] MEDS ORDERED: KETOROLAC TROMETHAMINE 30 MG/ML VIAL IV STA (19:22)
[2016-12-13] MEDS ORDERED: ONDANSETRON INJ 2 MG/ML 2 ML VIAL IV STA (19:22)
[2016-12-13 19:33] LABS: BASO % 0.2 %; BASO ABS # 0.02 K/uL (0-0.2); COMPLETE YES; EOS % 0.2 %; HEMATOCRIT 42.7 % (42-52); IG% 0.1 %; LYMPH % 6.1 %; LYMPH ABS # 0.49 K/uL (1.2-3.4); MEAN CELL VOLUME 87.1 fL (80-100); MEAN CORPUSCULAR HEMOGLOBIN 31.6 pg (25-34); MEAN CORPUSCULAR HGB CONC 36.3 g/dl (32-36); MONO % 6.2 %; NEUT % 87.2 %; PLATELET COUNT 215 K/uL (130-400); WHITE BLOOD COUNT 8.01 K/uL (4.8-10.8)
[2016-12-13 19:53] LABS: BUN/CREATININE RATIO 17.8 (10-20); CALCIUM 8.5 mg/dl (8.5-10.1); CREATININE 0.9 mg/dl (0.60-1.40); POTASSIUM 3.5 mmol/L (3.5-5.1)
[2016-12-13 20:34] VITALS: BP 128/73; PULSE 80; TEMP 37.7; O2SAT 95
[2017-03-11] MEDS ORDERED: FLNIN/ NAE (01:22)
[2017-03-11] MEDS ORDERED: RANI150T2 PO (20:53)
[2017-03-11] MEDS ORDERED: LPT40 PO (20:53)
[2017-03-11] MEDS ORDERED: CHOLCAP5 PO (20:54)
[2017-03-11] MEDS ORDERED: ASTN NAE (20:56)
== END 2016-12-13 20:35 | disposition home or self-care (01) ==
LOC: C.EDB 19:03 → C.EDA 20:35
DX: J06.9 Acute upper respiratory infection, unspecified (principal); M79.1 Myalgia; E78.5 Hyperlipidemia, unspecified; K21.9 Gastro-esophageal reflux disease without esophagitis; R19.7 Diarrhea, unspecified; F32.9 Major depressive disorder, single episode, unspecified; J45.909 Unspecified asthma, uncomplicated; G35 Multiple sclerosis; Z87.891 Personal history of nicotine dependence; Z79.899 Other long term (current) drug therapy; Z80.9 Family history of malignant neoplasm, unspecified; Z83.3 Family history of diabetes mellitus; Z82.49 Family history of ischemic heart disease and other diseases of the circulatory system

== ENCOUNTER 2017-03-11 22:05 | Emergency (ER) | payer OTHER ==
[~2017-03-11] VITALS: Ht 175.3 cm; Wt 95.5 kg
[~2017-03-11 22:05] MED LIST changes: -AMOX875T PO; +ASTN NAE; +CHOLCAP5 PO; +FLNIN/ NAE; +LPT40 PO; -NCDT21X TD; +RANI150T2 PO
[2017-03-11 22:06] VITALS: TEMP 36.7; Ht 175.3 cm; Wt 95.5 kg
[2017-03-11] MEDS ORDERED: ADVIN25/60 INH (22:30)
[2017-03-11] MEDS ORDERED: OMEP20CA9 PO (22:30)
[2017-03-11] MEDS ORDERED: DIME1CAP2 PO (22:46)
--- NOTE | 2017-03-11 23:38 | EMERGENCY ROOM VISIT NOTE ---
History Report prepared by Fede: Toni Larose Under the Supervision of: Dr. Leonel Casper M.D. First contact with patient: 22:49 Chief Complaint: URINARY SYMPTOMS Stated Complaint: HAVE TO PEE ALOT Nursing Triage Summary: frequency and burning at end of stream. c/o mid lower back pain, right groin pain History of Present Illness The patient is a 46 year old white male with a past medical history of MS, hyperlipidemia, Vitamin D deficiency, and urinary retention who presents to the ED with a cc of abnormal urinary symptoms beginning today. Positive urinary urgency, and burning at the end of urination. Negative fever, chills, cough, abdominal pain, nausea, vomiting, and trauma. His last asymptomatic urination was yesterday. He currently takes Lipitor, Vitamin D, and Tecfidera. Source of History: patient Onset: today Position: other () Symptom Intensity: moderate Quality: other (Urinary urgency) Timing: intermittent Associated Symptoms: + urinary symptoms (Burning at the end of urination), No fevers, No chills, No cough, No nausea, No vomiting, No abdominal pain Review of Systems See HPI for pertinent positives and negatives. A total of ten systems were reviewed and were otherwise negative. Past Medical & Surgical Medical Problems: (1) Acute bronchitis (2) Acute bronchitis (3) Asthma, Unspecified, W (Acute) Exacerbation (4) Bilateral inguinal hernia (5) Bronchitis (6) Bronchitis (7) Chest pain (8) Chest pain (9) Constipation (10) Cough (11) Cough (12) Depression (13) Dizziness (14) Dry socket (15) Dry socket (16) Esophageal Reflux (17) Hyperlipidemia, Unspecified (18) Lateral epicondylitis (19) Lumbago (20) MS (multiple sclerosis) (21) MS (multiple sclerosis) (22) Obsessive-Compulsive Dis (23) Pain, dental (24) Precordial chest pain (25) Sore throat (26) Tobacco abuse Family History Cancer Diabetes mellitus Heart disease Hypertension Social History Smoking Status: Never Smoker Alcohol Use: none Drug Use: none Marital Status: Housing Status: lives with family Occupation Status: unemployed, disabled Current/Historical Medications Scheduled Atorvastatin (Atorvastatin Calcium), 40 MG PO HS Cephalexin Monohydrate (Keflex), 500 MG PO BID Cholecalciferol (Vitamin D3), 5,000 INTER.UNIT PO DAILY Dimethyl Fumarate (Tecfidera), 240 MG PO BID Fluticasone Prop/Salmeterol (Advair Diskus 250/50 60 Dose), 1 PUFF INH BID Omeprazole (Prilosec), 20 MG PO DAILY Ranitidine HCl (Ranitidine HCl), 150 MG PO BID Tamsulosin Hcl (Flomax), 0.4 MG PO DAILY Scheduled PRN Azelastine Hcl (Astelin Nasal [place]), 1-2 SPRAYS HENRI BID PRN for Nasal Congestion Fluticasone Propionate (Fluticasone Propionate), 1 SPRAY HENRI BID PRN for Allergy Symptoms Allergies Coded Allergies: No Known Allergies (Verified , 11/02/16) Physical Exam Vital Signs Date Time Temp Pulse Resp B/P (MAP) Pulse Ox O2 Delivery O2 Flow Rate FiO2 03/12/17 01:00 59 18 117/78 98 03/12/17 00:07 59 18 111/96 96 Room Air 03/11/17 22:06 36.7 73 18 137/87 95 Room Air Physical Exam GENERAL: Awake, alert, well-appearing, NAD HENT: Normocephalic, atraumatic. EYES: Normal conjunctiva. Sclera non-icteric. NECK: Supple. No nuchal rigidity. FROM. RESPIRATORY: CTAB, no rhonchi, wheezing, crackles CARDIAC: RRR, no MRG ABDOMEN: Soft, NTND, BS+ MSK: No chest wall TTP, no CVA tenderness to palpation, no LE edema NEURO: GCS 15, CN 2-12 intact, moves all 4s on command SKIN: No rash or jaundice noted. Medical Decision & Procedures Laboratory Results 03/11/17 23:40 Red Blood Count 4.46, Mean Corpuscular Volume 86.3, Mean Corpuscular Hemoglobin 31.2, Mean Corpuscular Hemoglobin Concent 36.1, Mean Platelet Volume 9.9, Neutrophils (%) (Auto) 34.4, Lymphocytes (%) (Auto) 51.4, Monocytes (%) (Auto) 9.8, Eosinophils (%) (Auto) 3.6, Basophils (%) (Auto) 0.5, Neutrophils # (Auto) 1.26, Lymphocytes # (Auto) 1.88, Monocytes # (Auto) 0.36, Eosinophils # (Auto) 0.13, Basophils # (Auto) 0.02 03/11/17 23:40 Test 03/11/17 23:40 03/11/17 23:48 White Blood Count 3.66 K/uL (4.8-10.8) Red Blood Count 4.46 M/uL (4.7-6.1) Hemoglobin 13.9 g/dL (14.0-18.0) Hematocrit 38.5 % (42-52) Mean Corpuscular Volume 86.3 fL (80-100) Mean Corpuscular Hemoglobin 31.2 pg (25-34) Mean Corpuscular Hemoglobin Concent 36.1 g/dl (32-36) Platelet Count 189 K/uL (130-400) Mean Platelet Volume 9.9 fL (7.4-10.4) Neutrophils (%) (Auto) 34.4 % Lymphocytes (%) (Auto) 51.4 % Monocytes (%) (Auto) 9.8 % Eosinophils (%) (Auto) 3.6 % Basophils (%) (Auto) 0.5 % Neutrophils # (Auto) 1.26 K/uL (1.4-6.5) Lymphocytes # (Auto) 1.88 K/uL (1.2-3.4) Monocytes # (Auto) 0.36 K/uL (0.11-0.59) Eosinophils # (Auto) 0.13 K/uL (0-0.5) Basophils # (Auto) 0.02 K/uL (0-0.2) RDW Standard Deviation 39.5 fL (36.4-46.3) RDW Coefficient of Variation 12.4 % (11.5-14.5) Immature Granulocyte % (Auto) 0.3 % Immature Granulocyte # (Auto) 0.01 K/uL (0.00-0.02) Red Blood Cell Morphology Unremarkable Anion Gap 5.0 mmol/L (3-11) Est Creatinine Clear Calc Drug Dose 93.7 ml/min Estimated GFR () 91.5 Estimated GFR (Non- 79.0 BUN/Creatinine Ratio 16.2 (10-20) Calcium Level 8.7 mg/dl (8.5-10.1) Total Creatine Kinase 126 U/L (39-308) Urine Color YELLOW Urine Appearance CLEAR (CLEAR) Urine pH 7.0 (4.5-7.5) Urine Specific [place] 1.021 (1.000-1.030) Urine Protein TRACE (NEG) Urine Glucose (UA) NEG (NEG) Urine Ketones NEG (NEG) Urine Occult Blood 2+ (NEG) Urine Nitrite NEG (NEG) Urine Bilirubin NEG (NEG) Urine Urobilinogen NEG (NEG) Urine Leukocyte Esterase MODERATE (NEG) Urine WBC (Auto) >30 /hpf (0-5) Urine RBC (Auto) 10-30 /hpf (0-4) Urine Hyaline Casts (Auto) 1-5 /lpf (0-5) Urine Epithelial Cells (Auto) 0-5 /lpf (0-5) Urine Bacteria (Auto) NEG (NEG) Laboratory results reviewed by me Medications Administered Medications (Trade) Dose Ordered Sig/Farshad Route Start Time Stop Time Status Last Admin Dose Admin Ceftriaxone Sodium (Rocephin Im) 997.5 mg STK-MED ONCE IM 03/12/17 00:34 03/12/17 00:35 DC 03/12/17 00:34 997.5 MG ED Course 2249: The patient was evaluated in room C9. A complete history and physical exam was performed. 0027: I reassessed the patient at this time. He is doing well. 0100: I reevaluated the patient. Discussed results and discharge instructions: He verbalized understanding and agreement. The patient is ready for discharge. Medical Decision The patient is a 46 year old white male with a past medical history of MS, hyperlipidemia, Vitamin D deficiency, and urinary retention who presents to the ED with a cc of abnormal urinary symptoms beginning today. Positive urinary urgency, and burning at the end of urination. Negative fever, chills, cough, abdominal pain, nausea, vomiting, and trauma. Triage Nursing notes reviewed. The patient's presentation and history were concerning for UTI, cystitis, urinary retention, obstructive uropathy, and BPH. Saw and evaluated the patient at the bedside. Patient does not complain of any neuro symptoms. Patient did complain of some mild urinary hesitancy. Patient had had a prior history of some hesitancy and even retention secondary to his MS. Patient denied saddle anesthesia, low back pain, numbness tingling or weakness of his bilateral lower extremities. Patient's lower extremities and good and symmetric strength. Patient had no motor or sensory deficit. Patient denied any bladder or bowel incontinence. Patient was able to urinate. Patient 's kidney function was fairly normal. Patient's UA consistent with likely infection. This may be causing the retention. Patient did have mild blood in his urine however with normal kidney function. It is possible that he has hemorrhagic cystitis versus PPH versus possible kidney stone. Patient was treated for the UTI with first dose of antibiotics and given a prescription for home. She was also given Flomax which would help with possible BPH versus kidney stone. Patient was given strict follow-up, discharge, return precautions. Patient was told that if he is unable to urinate that he needs to return to the emergency department for further evaluation. Patient agreeable with plan of care was safely discharged home. Medication Reconcilliation Current Medication List: was personally reviewed by me Blood Pressure Screening Patient's blood pressure: Normal blood pressure Blood pressure disposition: Did not require urgent referral Impression Primary Impression: UTI (urinary tract infection) Additional Impressions: Urinary hesitancy Encounter for smoking cessation counseling Scribe Attestation The scribe's documentation has been prepared under my direction and personally reviewed by me in its entirety. I confirm that the note above accurately reflects all work, treatment, procedures, and medical decision making performed by me. Departure Information Dispostion Home / Self-Care Prescriptions Tamsulosin Hcl (FLOMAX) 0.4 Mg Cap 0.4 MG PO DAILY for 30 Days, #30 CAP Prov: Leonel Casper M.D. 03/12/17 Cephalexin Monohydrate (Keflex) 500 Mg Cap 500 MG PO BID for 7 Days, #14 CAP Prov: Leonel Casper M.D. 03/12/17 Referrals Ivan Izaguirre, D.OObey (PCP) Forms HOME CARE DOCUMENTATION FORM, IMPORTANT VISIT INFORMATION Patient Instructions Anatomy Urinary Tract Male, ED Retention Urinary Male, ED UTI Cystitis Male, Kidney Stones, My [facility] Additional Instructions Please return to the emergency department if you have worsening or recurrent symptoms not amenable to at-home treatment. Please call for a follow-up appointment with her primary care physician. Please take your medications as prescribed. If you have other concerns and/or complaints please feel free to also call your primary care physician's office or return the ED for further evaluation, management, and treatment. If you have worsening urinary retention or cannot urinate for a prolonged period of time please call your primary care physician or return to the emergency department. Please follow-up with your neurologist for care of your multiple sclerosis. Problem Qualifiers Primary Impression: UTI (urinary tract infection) Urinary tract infection type: acute cystitis Hematuria presence: with hematuria Qualified Codes: N30.01 - Acute cystitis with hematuria
[2017-03-11 23:56] LABS: HEMATOCRIT 38.5 % (42-52); MEAN CELL VOLUME 86.3 fL (80-100); MEAN CORPUSCULAR HEMOGLOBIN 31.2 pg (25-34); MEAN CORPUSCULAR HGB CONC 36.1 g/dl (32-36); MEAN PLATELET VOLUME 9.9 fL (7.4-10.4); PLATELET COUNT 189 K/uL (130-400); RED BLOOD COUNT 4.46 M/uL (4.7-6.1); WHITE BLOOD COUNT 3.66 K/uL (4.8-10.8)
[2017-03-11 23:59] LABS: URINE APPEARANCE CLEAR (CLEAR); URINE BILIRUBIN NEG (NEG); URINE COLOR YELLOW; URINE EPITHELIAL CELL AUTO 0-5 /lpf (0-5); URINE NITRITE NEG (NEG); URINE SPECIFIC GRAVITY 1.021 (1.000-1.030); UROBILINOGEN NEG (NEG); ZZUR CULT IF INDIC CLEAN CATCH YES
[2017-03-12 00:09] LABS: MANUAL MICROSCOPIC REQUIRED? NO; REVIEW REQ? NO
[2017-03-12 00:13] LABS: BUN/CREATININE RATIO 16.2 (10-20); CALCIUM 8.7 mg/dl (8.5-10.1); CREATININE 1.1 mg/dl (0.60-1.40); POTASSIUM 3.5 mmol/L (3.5-5.1)
[2017-03-12] MEDS ORDERED: CEFTRIAXONE SOD INJ 1 GM ADDVIAL IV STA (00:22)
[2017-03-12] MEDS ORDERED: CEFTRIAXONE SOD 350MG/ML 1 GM VIAL IM ONE ×2 (00:34→01:00)
[2017-03-12] MEDS ORDERED: CEPH500C PO (00:50)
[2017-03-12] MEDS ORDERED: TAMS0.4C38 PO (00:50)
[2017-03-12 01:00] VITALS: BP 117/78; PULSE 59; O2SAT 98
[2017-03-12 01:04] LABS: BASO % 0.5 %; BASO ABS # 0.02 K/uL (0-0.2); COMPLETE YES; EOS % 3.6 %; IG% 0.3 %; LYMPH % 51.4 %; LYMPH ABS # 1.88 K/uL (1.2-3.4); MONO % 9.8 %; NEUT % 34.4 %
== END 2017-03-12 01:00 | disposition home or self-care (01) ==
LOC: C.EDB 22:07 → C.EDC 03-12 01:00
DX: N39.0 Urinary tract infection, site not specified (principal); R39.11 Hesitancy of micturition; Z71.6 Tobacco abuse counseling; F32.9 Major depressive disorder, single episode, unspecified; K21.9 Gastro-esophageal reflux disease without esophagitis; G35 Multiple sclerosis; F17.200 Nicotine dependence, unspecified, uncomplicated; Z79.899 Other long term (current) drug therapy; Z80.9 Family history of malignant neoplasm, unspecified; Z83.3 Family history of diabetes mellitus; Z82.49 Family history of ischemic heart disease and other diseases of the circulatory system

== ENCOUNTER 2017-03-26 17:05 | Emergency (ER) | payer OTHER ==
[~2017-03-26] VITALS: Ht 175.3 cm; Wt 94.4 kg
[~2017-03-26 17:05] MED LIST changes: +ADVIN25/60 INH; +DIME1CAP2 PO; -MECL1TAB42 PO; +OMEP20CA9 PO; +TAMS0.4C38 PO
[2017-03-26 17:06] VITALS: TEMP 36.4; Ht 175.3 cm; Wt 94.4 kg
[2017-03-26] MEDS ORDERED: AZITTAB PO (17:37)
--- NOTE | 2017-03-26 17:52 | EMERGENCY ROOM VISIT NOTE ---
History Report prepared by Fede: Johnathan Pate Under the Supervision of: Soniya MartinO. First contact with patient: 17:19 Chief Complaint: COUGH Stated Complaint: BAD COUGH Nursing Triage Summary: cough congestion X 4 days , reports clear mucus History of Present Illness The patient is a 46 year old male who presents to the Emergency Room with complaints of a constant cough for the past 4-5 days. The patient states that he has clear, yellow, and green sputum. He additionally is complaining of congestion, fatigue, sore throat, rhinorrhea, and localized chest pain with coughing. He denies any fever, nausea, or vomiting. He has a history of COPD, GERD, and MS. Source of History: patient Onset: 4-5 days ago Position: other (global) Quality: other (cough) Timing: constant Associated Symptoms: + sorethroat, + chest pain, No fevers, No nausea, No vomiting Note: Associated symptoms: congestion, fatigue, rhinorrhea Review of Systems See HPI for pertinent positives & negatives. A total of 10 systems reviewed and were otherwise negative. Past Medical & Surgical Medical Problems: (1) Acute bronchitis (2) Acute bronchitis (3) Asthma, Unspecified, W (Acute) Exacerbation (4) Bilateral inguinal hernia (5) Bronchitis (6) Bronchitis (7) Chest pain (8) Chest pain (9) Constipation (10) Cough (11) Cough (12) Depression (13) Dizziness (14) Dry socket (15) Dry socket (16) Esophageal Reflux (17) Hyperlipidemia, Unspecified (18) Lateral epicondylitis (19) Lumbago (20) MS (multiple sclerosis) (21) MS (multiple sclerosis) (22) Obsessive-Compulsive Dis (23) Pain, dental (24) Precordial chest pain (25) Sore throat (26) Tobacco abuse Family History Cancer Diabetes mellitus Heart disease Hypertension Social History Smoking Status: Former Smoker Alcohol Use: none Drug Use: none Marital Status: Housing Status: lives with family Occupation Status: unemployed, disabled Current/Historical Medications Scheduled Atorvastatin (Atorvastatin Calcium), 40 MG PO HS Azithromycin (Zithromax Z-Perez), 1 PKT PO UD Cholecalciferol (Vitamin D3), 5,000 INTER.UNIT PO DAILY Dimethyl Fumarate (Tecfidera), 240 MG PO BID Fluticasone Prop/Salmeterol (Advair Diskus 250/50 60 Dose), 1 PUFF INH BID Omeprazole (Prilosec), 20 MG PO DAILY Ranitidine HCl (Ranitidine HCl), 150 MG PO BID Tamsulosin Hcl (Flomax), 0.4 MG PO DAILY Scheduled PRN Azelastine Hcl (Astelin Nasal [place]), 1-2 SPRAYS HENRI BID PRN for Nasal Congestion Fluticasone Propionate (Fluticasone Propionate), 1 SPRAY HENRI BID PRN for Allergy Symptoms Allergies Coded Allergies: No Known Allergies (Verified , 11/02/16) Physical Exam Vital Signs Date Time Temp Pulse Resp B/P (MAP) Pulse Ox O2 Delivery O2 Flow Rate FiO2 03/26/17 17:13 97 03/26/17 17:06 36.4 68 18 137/80 98 Room Air Physical Exam CONSTITUTIONAL/VITAL SIGNS: Reviewed / noted above. GENERAL: Non-toxic in appearance. INTEGUMENTARY: Warm, dry, and [place]. HEAD: Normocephalic. EYES: without scleral icterus or trauma. ENT/OROPHARYNX: clear and moist. LYMPHADENOPATHY/NECK: Is supple without lymphadenopathy or meningismus. RESPIRATORY: Lungs clear and equal. CARDIOVASCULAR: Regular rate and rhythm. GI/ABDOMEN: Soft and nontender. No organomegaly or pulsatile mass. No rebound or guarding. Normal bowel sounds. EXTREMITIES: Warm and well perfused. BACK: No CVA tenderness. NEUROLOGICAL: Intact without focal deficits. PSYCHIATRIC: normal affect. MUSCULOSKELETAL: Normally developed with good muscle tone. Medical Decision & Procedures ED Course 1740: Previous medical records were reviewed. The patient was evaluated in room C10. A complete history and physical examination was performed. The patient was ready for discharge after the instructions were given. Medical Decision the differential was considered includes acute myocardial infarction, acute coronary syndrome, myocarditis, pericarditis, pericardial effusions /tamponad, esophageal perforation, pulmonary embolism, pneumonia, pneumothorax, cardiomyopathy, congestive heart, anemia , COPD/asthma exacerbation. This is a 38-year-old male who presents to the ED with a chief complaint of a cough. He has had a cough for 5 days including symptoms of rhinorrhea, body aches and a productive cough for a clear to yellow sputum. He has a history of COPD from smoking. The patient denies any fevers, nausea or vomiting. His exam did not reveal any obvious abnormalities. Vital signs are stable. He is afebrile. Oxygen saturations are normal. He was discharged on Zithromax. The patient was felt to be stable for discharge. He was advised to use over-the- counter cough medicine. Medication Reconcilliation Current Medication List: was personally reviewed by me Blood Pressure Screening Patient's blood pressure: Normal blood pressure Impression Primary Impression: Bronchitis Scribe Attestation The scribe's documentation has been prepared under my direction and personally reviewed by me in its entirety. I confirm that the note above accurately reflects all work, treatment, procedures, and medical decision making performed by me. Departure Information Dispostion Home / Self-Care Prescriptions Azithromycin (ZITHROMAX Z-PEREZ) 250 Mg Tab 1 PKT PO UD for 5 Days, #1 PKT Prov: Giorgio Tucker D.O. 03/26/17 Referrals Ivan Izaguirre D.OObey (PCP) Forms HOME CARE DOCUMENTATION FORM, IMPORTANT VISIT INFORMATION Patient Instructions My [facility] Additional Instructions Zithromax as prescribed. Follow-up with your doctor for further care and evaluation in 1week if symptoms persist. Return to the emergency department for worsening or new symptoms or any concerns. You have been examined and treated today on an emergency basis only. This is not a substitute for, or an effort to provide, complete comprehensive medical care. It is impossible to recognize and treat all injuries or illnesses in a single emergency department visit. It is therefore important that you follow up closely with your doctor. Call as soon as possible for an appointment.
[2017-03-26 18:08] VITALS: BP 112/84; PULSE 78; O2SAT 98
== END 2017-03-26 18:10 | disposition home or self-care (01) ==
LOC: C.EDB 17:05 → C.EDC 18:10
DX: J40 Bronchitis, not specified as acute or chronic (principal); J44.9 Chronic obstructive pulmonary disease, unspecified; K21.9 Gastro-esophageal reflux disease without esophagitis; G35 Multiple sclerosis; E78.5 Hyperlipidemia, unspecified; F42.9 Obsessive-compulsive disorder, unspecified; M54.5 Low back pain; Z87.891 Personal history of nicotine dependence; Z79.899 Other long term (current) drug therapy; Z80.9 Family history of malignant neoplasm, unspecified; Z83.3 Family history of diabetes mellitus; Z82.49 Family history of ischemic heart disease and other diseases of the circulatory system

== ENCOUNTER → 2017-09-17 | Day surgery (SDC) | payer OTHER ==
[2017-09-15 15:26] VITALS: BMI 28.0
[~2017-09-17] VITALS: Ht 175.3 cm; Wt 87.3 kg
[~2017-09-17] MED LIST changes: +ATROPINE SULFATE 0.1 MG/ML 5ML SYR IV PRN; +CLB/200 PO; +FENTANYL CITRATE INJ 50 MCG/1 ML 2 ML VIAL ONE; +GADAVIST IV PRN; +LACTATED RINGER'S 1000ML 1,000 ML IV SCH; +MIDAZOLAM HCL 1 MG/ML 2ML VIAL ONE; -OMEP20CA9 PO; +ONDANSETRON INJ 2 MG/ML 2 ML VIAL IV PRN; -TAMS0.4C38 PO; +VNTHFA/IN INH
[2017-09-17 06:44] VITALS: BP 142/93; PULSE 57; TEMP 36.6; O2SAT 98; Ht 175.3 cm; Wt 87.3 kg
[2017-09-17 09:00] VITALS: BP 122/83; PULSE 51; TEMP 36.6; O2SAT 97
--- NOTE | 2017-09-17 09:24 | DIAGNOSTIC IMAGING REPORT ---
CERVICAL SPINE COMBO HISTORY: Demyelinating disorder MS TECHNIQUE: Multiplanar multisequence MRI of the cervical spine was performed both before and after the use of intravenous contrast. COMPARISON STUDY: None. FINDINGS: Normal signal characteristics of the vertebral bodies as well as intervertebral disc. Slight inhomogeneity of signal characteristics on the inversion recovery sagittal images although this is not seen on any additional sequence. Possibility of motion artifact is considered. C2-C3: No significant central canal or neural foraminal narrowing. C3-C4: No significant central canal or neural foraminal narrowing. C4-C5: No significant central canal or neural foraminal narrowing. C5-C6: No significant central canal or neural foraminal narrowing. C6-C7: No significant central canal or neural foraminal narrowing. C7-T1: No significant central canal or neural foraminal narrowing. IMPRESSION: 1. Subtle in homogeneity of cord signal on a single sagittal sequence. 2. Possibility of artifact is considered likely due to the absence of change on any additional sequence. 3. Study is considered normal. The above report was generated using voice recognition software. It may contain grammatical, syntax or spelling errors. Electronically signed by: Rolf Gomez M.D. 09/17/2017 9:23 AM Dictated Date/Time: 09/17/2017 9:13 AM
--- NOTE | 2017-09-17 09:24 | DIAGNOSTIC IMAGING REPORT ---
Brain MRI WITH AND WITHOUT CONTRAST HISTORY: Multiple sclerosis. TECHNIQUE: Multiplanar multisequence MRI of the brain was performed both before and after the intravenous administration of contrast. COMPARISON STUDY: Brain MRI 08/25/2016. FINDINGS: No areas of restricted diffusion to suggest acute infarction. Small retention cysts within the left max a sinus. A few opacified right ethmoid air cells, unchanged. The orbits are unremarkable. The major vascular flow voids at the skull base are well-maintained. No hematoma or midline shift. There are no masses identified. The ventricles and sulci are within normal limits. No abnormal enhancement. There are few scattered punctate foci of T2 hyperintensity within the subcortical white matter of the left high convexity. This is also a focus of T2 hyperintensity within the periventricular white matter of the right parietal lobe. These remain unchanged. No new white matter abnormalities identified. No abnormality within the posterior fossa. IMPRESSION: 1. No acute intracranial abnormality. 2. A few scattered nonspecific foci of T2 hyperintensity within the subcortical and periventricular white matter remain unchanged. No new white matter abnormalities identified. 3. No abnormal enhancement. Electronically signed by: Andres Monsivais M.D. 09/17/2017 9:23 AM Dictated Date/Time: 09/17/2017 9:12 AM
--- NOTE | 2017-09-17 09:27 | Discharge Instructions ---
Discharge Instructions Date of Service Sep 17, 2017. Visit Reason for Visit: MS Discharge Discharge Diagnosis / Problem: multiple sclerosis Discharge Goals Goal(s): Diagnostic testing Activity Recommendations Activity Limitations: resume your previous activity Anesthesia . Post Anesthesia Instructions: If you have had General Anesthesia or IV Sedation: * Do not drive today. * Resume driving when surgeon permits. * Do not make important decisions or sign legal documents today. * Call surgeon for: 1. Temperature elevations greater than 101 degrees F. 2. Uncontrollable pain. 3. Excessive bleeding. 4. Persistent nausea and vomiting. 5. Medication intolerance (nausea, vomiting or rash). * For nausea and vomiting use only clear liquids such as: tea, soda, bouillon until nausea subsides, then gradually increase diet as tolerated. * If you have any concerns or questions, call your surgeon's office. If physician is unavailable and it is an emergency, call 911 or go to the nearest emergency room. . Instructions / Follow-Up Instructions / Follow-Up Follow up with Dr Marco A Vivar Recommendations Recommended Home Diet: resume previous diet Pending Studies Studies pending at discharge: yes List of pending studies: MRI results Medical Emergencies . Who to Call and When: Medical Emergencies: If at any time you feel your situation is an emergency, please call 911 immediately. . Non-Emergent Contact Non-Emergency issues call your: Primary Care Provider Call Non-Emergent contact if: you have a fever, your pain is unusual for you . Past History Medical & Surgical History: (1) MS (multiple sclerosis) . "Provider Documentation" section prepared by Homer Calzada. .
[2017-09-17 09:30] VITALS: BP 119/75; PULSE 46; TEMP 36.5; O2SAT 98
--- NOTE | 2017-09-17 09:42 | Anesthesiology Progress Note ---
Anesthesia Post Op Note Date & Time Sep 17, 2017 at 09:42 Vital Signs Pain Intensity: 0 Vital Signs Past 12 Hours Date Time Temp Pulse Resp B/P (MAP) Pulse Ox O2 Delivery O2 Flow Rate FiO2 09/17/17 09:00 36.6 51 18 122/83 97 Room Air 09/17/17 06:44 36.6 57 18 142/93 (109) 98 Room Air Notes Mental Status: alert / awake / arousable, participated in evaluation Pt Amnestic to Procedure: Yes Nausea / Vomiting: adequately controlled Pain: adequately controlled Airway Patency, RR, SpO2: stable & adequate BP & HR: stable & adequate Hydration State: stable & adequate Anesthetic Complications: no major complications apparent
== END | disposition home or self-care (01) ==
LOC: C.ACU 06:00 → EDSTATUS 07:30
PROVIDERS: ATTEND Psychiatry & Neurology Neurology
DX: G35 Multiple sclerosis (principal); G47.33 Obstructive sleep apnea (adult) (pediatric); F17.200 Nicotine dependence, unspecified, uncomplicated; F32.9 Major depressive disorder, single episode, unspecified; K21.9 Gastro-esophageal reflux disease without esophagitis; G47.00 Insomnia, unspecified; M25.511 Pain in right shoulder; G25.81 Restless legs syndrome; E55.9 Vitamin D deficiency, unspecified; Z87.891 Personal history of nicotine dependence; Z90.49 Acquired absence of other specified parts of digestive tract; Z80.0 Family history of malignant neoplasm of digestive organs

== ENCOUNTER 2020-05-29 15:52 | Observation (INO) ==
[2020-05-29 16:44] LABS: Basophils # (auto) 0.01 K/uL (0-0.2); Basophils % (auto) 0.2 %; Eosinophils # (auto) 0.05 K/uL (0-0.5); Eosinophils % (auto) 0.8 %; Hematocrit (blood only) 42.4 % (42-52); Hemoglobin 14.6 g/dL (14.0-18.0); Immature Granulocytes # (auto) 0.01 K/uL (0.00-0.02); Immature Granulocytes % (auto) 0.2 %; Lymphocytes # (auto) 1.65 K/uL (1.2-3.4); Lymphocytes % (auto) 24.9 %; Mean Corpuscular Hemoglobin 31.3 pg (25-34); Mean Corpuscular Hgb Conc 34.4 g/dL (32-36); Mean Platelet Volume 10.4 fL (7.4-10.4); Monocytes # (auto) 0.48 K/uL (0.11-0.59); Monocytes % (auto) 7.3 %; Neutrophils # (auto) 4.42 K/uL (1.4-6.5); Neutrophils % (auto) 66.6 %; Platelet Count 228 K/uL (130-400); RDW Coefficient of Variation 12.9 % (11.5-14.5); RDW Standard Deviation 42.6 fL (36.4-46.3); Red Blood Count 4.66 M/uL (4.7-6.1); White Blood Count 6.62 K/uL (4.8-10.8)
[2020-05-29 16:55] LABS: Partial Thromboplastin Ratio 0.9; Partial Thromboplastin Time 26.2 Seconds (21.0-31.0); Prothrombin Time 10.8 Seconds (9.0-12.0)
[2020-05-29 17:00] LABS: D Dimer 720 ug/L FEU (0-500)
[2020-05-29 17:01] LABS: Alanine Aminotransferase 36 U/L (12-78); Albumin Level 3.9 gm/dl (3.4-5.0); Aspartate Aminotransferase 18 U/L (15-37); BUN Creatinine Ratio 15.7 (10-20); Blood Urea Nitrogen 15 mg/dl (7-18); Calcium 9.1 mg/dl (8.5-10.1); Carbon Dioxide 27 mmol/L (21-32); Chloride 103 mmol/L (98-107); Est GFR (Non-African American) 92.3; Glucose 83 mg/dl (70-99); Lipase 127 U/L (73-393); Potassium 3.4 mmol/L (3.5-5.1); Sodium 136 mmol/L (136-145)
[2020-05-29 17:06] LABS: Alkaline Phosphatase 63 U/L (45-117); Bilirubin,Total 0.3 mg/dl (0.2-1); Globulin 3.9 gm/dl (2.5-4.0); Total Protein 7.8 gm/dl (6.4-8.2); Troponin I < 0.015 ng/ml (0-0.045)
--- NOTE | 2020-05-29 17:14 | XRay Report ---
XR chest 1V portable HISTORY: Atypical Chest Pain COMPARISON: Chest 11/02/2016. FINDINGS: The lungs are clear. Cardiac silhouette is normal in size. No pleural effusions. No pneumot horax. IMPRESSION: No acute process. ACT 112: Negative or not required by law. Electronically signed by: Andres Monsivais M.D. 05/29/2020 5:13 PM
--- NOTE | 2020-05-29 19:10 | Emergency Department Note ---
Impression & Plan Substernal chest pain ED Provider Note INFORMANT: [Patient] ED PROVIDER(S): Rubén Shepard MD CHIEF COMPLAINT: Chest pain PLAN: Disposition: Admitted Condition: [Good] MEDICAL DECISION MAKING: Pt presented with concerning history and risk factors. ECG and labs unremarkable. CT dissection study negative. Patient has a negative troponin x 1. He needs a formal work up in the hospital given the scenario. Triage Nursing notes reviewed and agree them. [Additional history obtained from] his significant other. Vital Signs: reviewed and remarkable for [no significant abnormalities] Differential diagnosis: Cardiac ischemia, aortic dissection, pulmonary embolism, pneumothorax, pneumonia, pericarditis, myocarditis, esophageal rupture, GERD, cholecystitis, pancreatitis, musculoskeletal, as well as other pathologies. Diagnostics interpreted by me: ECG: Rate:67 Rhythm:Normal sinus [place]:Normal QRS:Normal ST segements:No elevation or depression Other:No PACs or PVCs Cardiac Monitoring: Cardiac monitoring ordered by me: The patient was placed on continuous cardiac monitoring and observed. It revealed a normal sinus rhythm at 70 beats per minute without ectopy or evidence of dysrhythmia. Imaging studies: Chest x-ray. Findings: A chest x-ray was performed and revealed no pneumothorax, effusion, infiltrate, pulmonary edema, free air under the diaphragm, or wide mediastinum. CT dissection study negative for emergent pathology. Consultation(s): [place]. Ruby, [facility] [place] HPI: The patient is a 49 year old male who presents to the Emergency Room with complaints of substernal chest pain. This started today 1500 and is now currently resolved. The patient also notes the following associated symptoms, diaphoresis, pain radiating to the back, pain then radiating down into the abdomen. The patient has took no medication for relieving factors. Current pain is rated as 0/10. Patient felt like he was going to pass out due to the pain. This occurred at rest. No known heart history. Father does have coronary disease and had bypass in his 50s. Patient is a smoker and has high cholesterol. Pt denies LOC, headache, fevers, chills, visual changes, neck pain, , breathing difficulties, nausea, vomiting, back pain, melena, hematochezia, urinary symptoms, numbness, weakness, lymphadenopathy, rash, or other complaints. ROS: See above HPI for pertinent positives & negatives. A total of [10] systems reviewed and were otherwise negative. PAST MEDICAL HISTORY:[See Below] , high cholesterol PAST SURGICAL HISTORY:[See Below] FAMILY HISTORY:[See Below] SOCIAL HISTORY:[See Below], HOME MEDICATIONS:[See Below] ALLERGIES:[See Below] VITALS:[See Below] PHYSICAL EXAMINATION: GENERAL: Awake, alert, well-appearing, in no distress HENT: Normocephalic, atraumatic. Oropharynx unremarkable. EYES: Normal conjunctiva. Sclera non-icteric. NECK: Inspection normal. Non-tender. Supple. No nuchal rigidity. FROM. No masses. RESPIRATORY: Clear to auscultation. No wheezes. No rales. Normal respiratory effort. CARDIAC: Normal rate. Normal rhythm. No murmurs. No rubs. Extremities warm and well perfused. Pulses equal. No JVD. GI: Soft, non-distended. No tenderness to palpation. No rebound or guarding. No masses. RECTAL: Deferred. MUSCULOSKELETAL: Atraumatic. Chest examination reveals no tenderness. The back is symmetrical on inspection without obvious abnormality. There is no CVA tenderness to palpation. No joint edema. LOWER EXTREMITIES: Calves are equal size bilaterally and non-tender. No edema. No discoloration. NEURO: Normal sensorium. No sensory or motor deficits noted. SKIN: No rash or jaundice noted. Rubén Shepard MD Past Med/Surg History Medical History Acute bronchitis Bilateral inguinal hernia Chest pain Dry socket Lateral epicondylitis MS (multiple sclerosis) Precordial chest pain Substernal chest pain Tobacco abuse Viral URI with cough Surgical History H/O umbilical hernia repair Social History Smoking Status: Current every day smoker Cigarettes Per Day: 10; Do You Dip or Chew Tobacco: No; Hx Alcohol Use: Yes Alcohol type: beer Hx Substance Use: No Preferred Language: Kinyarwanda Communication Ability: Effective Caustic Pump Operator Required: No Beliefs That Will Affect Care: None Current Living Situation: Spouse Other Information That Helps Us Care for You: No Feels Safe at Home: Yes Safety Concerns: Feels Safe At This Time Assistive Devices: None Allergies Allergies Allergy/AdvReac Type Severity Reaction Status Date / Time No Known Allergies Allergy Verified 05/29/20 16:51 Home Meds Home Medications Medication Instructions Recorded Confirmed albuterol sulfate 2 puff INHALATION Q4H PRN 07/16/19 05/29/20 albuterol sulfate 2.5 mg INHALATION QID PRN 07/16/19 05/29/20 atorvastatin [Lipitor] 40 mg PO DAILY 07/16/19 05/29/20 famotidine [Pepcid] 40 mg PO BID 07/16/19 05/29/20 fluticasone propion-salmeterol 1 ea INHALATION BID PRN 07/16/19 05/29/20 [Advair Diskus] fluticasone propionate [Flonase 2 spray INTRANASAL DAILY PRN 07/16/19 05/29/20 Allergy Relief] montelukast 10 mg PO HS 07/16/19 05/29/20 pantoprazole [Protonix] 40 mg PO DAILY 07/16/19 05/29/20 cholecalciferol (vitamin D3) 5,000 unit PO DAILY 05/29/20 05/29/20 [Vitamin D3] Previous Rx's Medication Instructions Recorded dimethyl fumarate 240 mg 240 mg PO BID #180 cap 03/26/20 capsule,delayed release nicotine [Nicoderm CQ] 1 patch TRANSDERMAL DAILY #14 ea 05/30/20 Results & Data (ED) Vital Signs Vital Signs - 24 hr 05/29/20 16:02 05/29/20 16:15 05/29/20 16:30 Temperature 36.8 C Temperature Source Oral Pulse Rate 70 69 Pulse Rate from SpO2 Sensor 70 Respiratory Rate 12 19 Blood Pressure 127/80 114/75 Blood Pressure Mean 95 86 Pulse Oximetry 97 97 97 Oxygen Delivery Method Room Air Room Air Sepsis Recent Fever Within 48 Hours No Sepsis New/Unexplained Change in Mental Status No Sepsis Action Taken by Nursing No Action Required 05/29/20 17:00 05/29/20 17:30 05/29/20 18:00 Temperature Temperature Source Pulse Rate 65 63 61 Pulse Rate from SpO2 Sensor 65 64 62 Respiratory Rate 22 13 14 Blood Pressure 113/72 120/75 113/71 Blood Pressure Mean 81 81 80 Pulse Oximetry 96 96 95 Oxygen Delivery Method Room Air Sepsis Recent Fever Within 48 Hours Sepsis New/Unexplained Change in Mental Status Sepsis Action Taken by Nursing Laboratory Data Result diagrams: 05/30/20 05:23 11/05/20 05:23 Lab Results 05/29/20 05/29/20 05/29/20 Range/Units 16:25 16:25 16:25 WBC 6.62 (4.8-10.8) K/uL RBC 4.66 L (4.7-6.1) M/uL Hgb 14.6 (14.0-18.0) g/dL Hct 42.4 (42-52) % MCV 91.0 (80-100) fL MCH 31.3 (25-34) pg MCHC 34.4 (32-36) g/dL RDW Std Deviation 42.6 (36.4-46.3) fL RDW Coeff of [place] 12.9 (11.5-14.5) % Plt Count 228 (130-400) K/uL MPV 10.4 (7.4-10.4) fL Immature Gran % (Auto) 0.2 % Neut % (Auto) 66.6 % Lymph % (Auto) 24.9 % [place] % (Auto) 7.3 % Eos % (Auto) 0.8 % Baso % (Auto) 0.2 % Neut # (Auto) 4.42 (1.4-6.5) K/uL Lymph # (Auto) 1.65 (1.2-3.4) K/uL [place] # (Auto) 0.48 (0.11-0.59) K/uL Eos # (Auto) 0.05 (0-0.5) K/uL Baso # (Auto) 0.01 (0-0.2) K/uL Immature Gran # (Auto) 0.01 (0.00-0.02) K/uL PT 10.8 (9.0-12.0) Seconds INR 1.0 (0.9-1.1) APTT 26.2 (21.0-31.0) Seconds PTT Ratio 0.9 D-Dimer 720 H* (0-500) ug/L FEU Sodium 136 (136-145) mmol/L Potassium 3.4 L (3.5-5.1) mmol/L Chloride 103 (98-107) mmol/L Carbon Dioxide 27 (21-32) mmol/L Anion Gap 6.0 (3-11) BUN 15 (7-18) mg/dl Creatinine 0.95 (0.6-1.4) mg/dl Est Cr Clr Drug Dosing 92.0 ml/min Est GFR ( Amer) 107.0 Est GFR (Non-Af Amer) 92.3 BUN/Creatinine Ratio 15.7 (10-20) Glucose 83 (70-99) mg/dl Calcium 9.1 (8.5-10.1) mg/dl Magnesium (1.8-2.4) mg/dl Total Bilirubin 0.3 (0.2-1) mg/dl AST 18 (15-37) U/L ALT 36 (12-78) U/L Alkaline Phosphatase 63 (45-117) U/L Troponin I < 0.015 (0-0.045) ng/ml Total Protein 7.8 (6.4-8.2) gm/dl Albumin 3.9 (3.4-5.0) gm/dl Globulin 3.9 (2.5-4.0) gm/dl Albumin/Globulin Ratio 1.0 (0.9-2) Lipase 127 (73-393) U/L TSH (0.300-4.500) uIu/ml Lyme Disease IgG Ab (Negative) Lyme Disease IgM Ab (Negative) 05/29/20 05/29/20 Range/Units 16:28 21:55 WBC (4.8-10.8) K/uL RBC (4.7-6.1) M/uL Hgb (14.0-18.0) g/dL Hct (42-52) % MCV (80-100) fL MCH (25-34) pg MCHC (32-36) g/dL RDW Std Deviation (36.4-46.3) fL RDW Coeff of [place] (11.5-14.5) % Plt Count (130-400) K/uL MPV (7.4-10.4) fL Immature Gran % (Auto) % Neut % (Auto) % Lymph % (Auto) % [place] % (Auto) % Eos % (Auto) % Baso % (Auto) % Neut # (Auto) (1.4-6.5) K/uL Lymph # (Auto) (1.2-3.4) K/uL [place] # (Auto) (0.11-0.59) K/uL Eos # (Auto) (0-0.5) K/uL Baso # (Auto) (0-0.2) K/uL Immature Gran # (Auto) (0.00-0.02) K/uL PT (9.0-12.0) Seconds INR (0.9-1.1) APTT (21.0-31.0) Seconds PTT Ratio D-Dimer (0-500) ug/L FEU Sodium (136-145) mmol/L Potassium (3.5-5.1) mmol/L Chloride (98-107) mmol/L Carbon Dioxide (21-32) mmol/L Anion Gap (3-11) BUN (7-18) mg/dl Creatinine (0.6-1.4) mg/dl Est Cr Clr Drug Dosing ml/min Est GFR ( Amer) Est GFR (Non-Af Amer) BUN/Creatinine Ratio (10-20) Glucose (70-99) mg/dl Calcium (8.5-10.1) mg/dl Magnesium 2.4 (1.8-2.4) mg/dl Total Bilirubin (0.2-1) mg/dl AST (15-37) U/L ALT (12-78) U/L Alkaline Phosphatase (45-117) U/L Troponin I < 0.015 (0-0.045) ng/ml Total Protein (6.4-8.2) gm/dl Albumin (3.4-5.0) gm/dl Globulin (2.5-4.0) gm/dl Albumin/Globulin Ratio (0.9-2) Lipase (73-393) U/L TSH 0.572 (0.300-4.500) uIu/ml Lyme Disease IgG Ab Negative (Negative) Lyme Disease IgM Ab Negative (Negative) Administered Medications Discontinued Medications Aspirin (Aspirin Chew 324 Mg) 324 mg PO NOW STA Stop: 05/29/20 21:20 Last Admin: 05/29/20 21:51 Dose: 324 mg Documented by: [id number] [facility]ir[facility] (Aspirin 81 Mg Ectab) [facility] [place]: 06/29/20 08:59 Last Admin: 05/30/20 10:18 Dose: 81 mg Documented by: [id number] Atorvastatin Calcium (Atorvastatin 40 Mg Tab) 40 mg PO DAILY [place] Stop: 06/29/20 08:59 Last Admin: 05/30/20 10:18 Dose: 40 mg Documented by: [id number] Enoxaparin Sodium (Enoxaparin Inj 40 Mg/0.4 Ml Syr) 40 mg SQ QAM [facility] Stop: 06/29/20 08:59 Last Admin: 05/30/20 10:18 Dose: Not Given Documented by: [id number] Famotidine (Famotidine 40 Mg Tablet) 40 mg PO BID [facility] Stop: 06/29/20 08:59 Last Admin: 05/30/20 10:18 Dose: 40 mg Documented by: [id number] Potassium Chloride 40 meq/ (Dextrose/Sodium Chloride) 1,020 mls @ 50 mls/hr IV .[id number] [facility] Stop: 06/29/20 00:59 Last Admin: 05/30/20 04:17 Dose: 50 mls/hr Documented by: [id number] Ioversol (Optiray 320 125ml) 120 ml IV ONCE ONE Stop: 05/29/20 19:54 Last Admin: 05/29/20 19:53 Dose: 120 ml Documented by: [id number] Miscellaneous (Remove Nicoderm Patch) 1 ea N/A DAILY@[id number] [facility] Stop: 06/29/20 08:58 Last Admin: 05/30/20 10:17 Dose: 1 ea Documented by: [id number] Miscellaneous (Dimethyl Fumarate [Tecfidera]: Order Awaiting Action) 1 ea N/A QS [facility] Stop: 06/29/20 07:59 Last Admin: 05/30/20 07:51 Dose: Not Given Documented by: [id number] Nicotine (Nicotine 7 Mg/24 Hr Tdsy) [facility] [place]: 06/28/20 22:34 Last Admin: 05/30/20 10:19 Dose: Not Given Documented by: [id number] Admin: 05/29/20 22:35 Dose: 7 mg Documented by: [id number] Pantoprazole Sodium (Pantoprazole 40 Mg Tab) 40 mg PO DAILY [facility] Stop: 06/29/20 08:59 Last Admin: 05/30/20 10:18 Dose: 40 mg Documented by: [id number] Potassium Chloride (Potassium Chloride 20 Meq Tabcr) 40 meq PO NOW [facility] Stop: 05/29/20 21:27 Last Admin: 05/29/20 21:52 Dose: 40 meq Documented by: [id number] Discharge Plan Visit Data Chief Complaint: Cardiac Assessment Stated Complaint: CHEST PAIN ED Provider: Rubén Shepard Discharge Problem: Substernal chest pain Patient Disposition: Admitted As Inpatient Condition: Good Discharge Instructions Interventions: ED Discharge Assessment Last Done: 05/29/20 23:09
[2020-05-29] MEDS ORDERED: OPTIRAY 320 125ml IV ONE (19:53)
--- NOTE | 2020-05-29 20:38 | CT Scan Report ---
CHEST CTA for AORTIC DISSECTION, ABDOMEN AND PELVIS CTA CT DOSE: 1039.78 mGy.cm HISTORY: chest and back pain, +dimer TECHNIQUE: Multiaxial CT images of the chest, abdomen, and pelvis were performed both before and afte r the intravenous administration of contrast to evaluate the aorta. Maximal intensity projection imag es were also obtained. A dose lowering technique was utilized adhering to the principles of ALARA. COMPARISON STUDY: Chest CTA 11/20/2014.. FINDINGS: Chest CTA: Noncontrast imaging through the chest shows no evidence for an intramural hematoma within the thoracic aorta. The thoracic aorta is normal in course and caliber with no evidence for dissectio n. The heart is normal in size. The central pulmonary arteries are patent. No suspicious lytic or malachi stic osseous lesions. No mediastinal or hilar lymphadenopathy. Normal esophagus. No pleural or perica rdial effusions. No pneumothorax. The central airways are patent. A 2 mm subpleural nodule within the right lung apex on image 67. This is of doubtful clinical significance given its small size. No foca l lung consolidations to suggest pneumonia. Abdomen/pelvis CTA: No pneumoperitoneum. No pneumatosis. A 1.5 cm sclerotic focus within the left kavya ac wing. This favors a bone island. No fractures within the visualized osseous structures. Punctate c alcifications within the anterior abdominal wall which may be due to prior medication injection. Surg ical clips within the inguinal regions. No hepatic or splenic masses. The gallbladder, pancreas, adre nal glands are unremarkable. There is a 5 cm cyst within the lower pole the right kidney. Normal left kidney. No hydronephrosis. No retroperitoneal lymphadenopathy. The bladder is unremarkable. No pelvi c free fluid. No bowel wall thickening or obstruction. The appendix is not identified and reportedly surgically absent. Small to moderate amount of well-formed stool within the colon. Normal caliber abd ominal aorta with no evidence for dissection. The celiac, mesenteric, and renal arteries are widely p atent. The iliac arteries are also patent. IMPRESSION: 1. Normal caliber aorta. No evidence for dissection. 2. No acute process within the chest, abdomen, or pelvis. 3. Additional findings as described above. ACT 112: Negative or not required by law. Electronically signed by: Andres Monsivais M.D. 05/29/2020 8:36 PM
[2020-05-29] MEDS ORDERED: ASPIRIN CHEW 324 MG PO STA (21:19)
[2020-05-29] MEDS ORDERED: POTASSIUM CHLORIDE 20 MEQ TABCR PO STA (21:26)
--- NOTE | 2020-05-29 22:15 | History & Physical Report ---
Date of Service May 29, 2020 Assessment & Plan (1) Atypical chest pain: Rule out ACS given patient's risk factors for ischemic heart disease COPD, stable hyperlipidemia on statin Rx multiple sclerosis as per records, stable on regimen DAMON (CPAP noncompliance) Hypokalemia ongoing tobacco use OBS PCU Follow troponin Exercise stress echo in a.m. if subsequent troponins within normal limits Aspirin for CAD prevention until ACS ruled out Replace potassium Nicotine patch DVT prophylaxis Lovenox subcu Full code Text document was generated using [employer] voice recognition software. It may contain grammatical or spelling errors. Kindly contact undersigned for clarification of any documentation item in question. History of Present Illness Chief Complaint: Chest pain Primary Care Provider: Ivan Izaguirre DO History obtained from patient and records. Medical history significant for COPD, hyperlipidemia, multiple sclerosis as per records, appendiceal carcinoid status post surgery, DAMON (CPAP noncompliance), ongoing tobacco abuse. Last confinement 2014 for chest pain. Stress echo negative. Patient was sitting doing computer work this afternoon when he experienced achy right-sided chest pain going to the back without other symptoms. No cough, no S OB, no fever, no chills. Different from reflux. No prior episodes. Symptoms resolving upon arrival at the ER. MEDICAL HISTORY: As above. SURGERIES: He has had an appendectomy, hernia repair. Sinus surgery, vasectomy FAMILY HISTORY: Heart disease. Throat cancer. PERSONAL AND SOCIAL HISTORY: 8 cigarettes a day, occasional EtOH intake, on disability. Allergies Allergy/AdvReac Type Severity Reaction Status Date / Time No Known Allergies Allergy Verified 05/29/20 16:51 Home Medications Home Medications Medication Instructions Recorded Confirmed Type albuterol sulfate 2 puff INHALATION Q4H PRN 07/16/19 05/29/20 History albuterol sulfate 2.5 mg INHALATION QID PRN 07/16/19 05/29/20 History atorvastatin [Lipitor] 40 mg PO DAILY 07/16/19 05/29/20 History famotidine [Pepcid] 40 mg PO BID 07/16/19 05/29/20 History fluticasone propion-salmeterol 1 ea INHALATION BID PRN 07/16/19 05/29/20 History [Advair Diskus] fluticasone propionate [Flonase 2 spray INTRANASAL DAILY PRN 07/16/19 05/29/20 History Allergy Relief] montelukast 10 mg PO HS 07/16/19 05/29/20 History pantoprazole [Protonix] 40 mg PO DAILY 07/16/19 05/29/20 History dimethyl fumarate 240 mg 240 mg PO BID #180 cap 03/26/20 05/29/20 Rx capsule,delayed release cholecalciferol (vitamin D3) 5,000 unit PO DAILY 05/29/20 05/29/20 History [Vitamin D3] Past Med/Surg History Medical History (Updated 05/30/20 @ 01:19 by Ryan Ruby MD) Acute bronchitis Bilateral inguinal hernia Chest pain Dry socket Lateral epicondylitis MS (multiple sclerosis) Precordial chest pain Tobacco abuse Viral URI with cough Surgical History (Updated 07/16/19 @ 20:11 by Analy Najera) H/O umbilical hernia repair Social History Smoking Status: Current every day smoker Cigarettes Per Day: 10; Do You Dip or Chew Tobacco: No; Hx Alcohol Use: Yes Alcohol type: beer Hx Substance Use: No Preferred Language: Georgian Communication Ability: Effective 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: No Beliefs That Will Affect Care: None Current Living Situation: Spouse Other Information That Helps Us Care for You: No Feels Safe at Home: Yes Safety Concerns: Feels Safe At This Time Assistive Devices: Glasses Review of Systems Review of Systems: As per HPI, all 10 systems reviewed, all other ROS negative Physical Exam Physical Exam: GENERAL: Comfortable, no respiratory distress SKIN: Normal color, warm HEENT: [place] palpebral conjunctivae, no ptosis, dry buccal mucosa NECK : Supple, no tenderness CHEST : CTA, no tenderness HEART : Bradycardic, no obvious murmurs ABDOMEN: Some distention, nontender EXTREMITIES : No LE swelling/tenderness, no other conspicuous deformities noted NEUROLOGIC : Coherent, no facial asymmetry, no other gross focality Results & Data Results & Data ([facility]) Vital Signs (Past 12 Hours) Vital Signs Temp Pulse Resp BP Pulse Ox 05/29/20 21:30 65 19 133/90 95 05/29/20 21:00 56 L 19 118/74 95 05/29/20 20:30 60 17 116/78 96 05/29/20 20:08 61 19 122/79 96 05/29/20 19:30 71 18 05/29/20 19:00 57 L 20 05/29/20 18:30 64 15 115/75 97 05/29/20 18:00 61 14 113/71 95 05/29/20 17:30 63 13 120/75 96 05/29/20 17:00 65 22 113/72 96 05/29/20 16:30 69 19 114/75 97 05/29/20 16:15 97 05/29/20 16:02 36.8 C 70 12 127/80 97 Laboratory Results Laboratory Results WBC 6.62 K/uL (4.8-10.8) 05/29/20 16:25 RBC 4.66 M/uL (4.7-6.1) L 05/29/20 16:25 Hgb 14.6 g/dL (14.0-18.0) 05/29/20 16:25 Hct 42.4 % (42-52) 05/29/20 16:25 MCV 91.0 fL (80-100) 05/29/20 16:25 MCH 31.3 pg (25-34) 05/29/20 16:25 MCHC 34.4 g/dL (32-36) 05/29/20 16:25 RDW Std Deviation 42.6 fL (36.4-46.3) 05/29/20 16:25 RDW Coeff of [place] 12.9 % (11.5-14.5) 05/29/20 16:25 Plt Count 228 K/uL (130-400) 05/29/20 16:25 MPV 10.4 fL (7.4-10.4) 05/29/20 16:25 Immature Gran % (Auto) 0.2 % 05/29/20 16:25 Neut % (Auto) 66.6 % 05/29/20 16:25 Lymph % (Auto) 24.9 % 05/29/20 16:25 [place] % (Auto) 7.3 % 05/29/20 16:25 Eos % (Auto) 0.8 % 05/29/20 16:25 Baso % (Auto) 0.2 % 05/29/20 16:25 Neut # (Auto) 4.42 K/uL (1.4-6.5) 05/29/20 16:25 Lymph # (Auto) 1.65 K/uL (1.2-3.4) 05/29/20 16:25 [place] # (Auto) 0.48 K/uL (0.11-0.59) 05/29/20 16:25 Eos # (Auto) 0.05 K/uL (0-0.5) 05/29/20 16:25 Baso # (Auto) 0.01 K/uL (0-0.2) 05/29/20 16:25 Immature Gran # (Auto) 0.01 K/uL (0.00-0.02) 05/29/20 16:25 PT 10.8 Seconds (9.0-12.0) 05/29/20 16:25 INR 1.0 (0.9-1.1) 05/29/20 16:25 APTT 26.2 Seconds (21.0-31.0) 05/29/20 16:25 PTT Ratio 0.9 05/29/20 16:25 D-Dimer 720 ug/L FEU (0-500) H* 05/29/20 16:25 Sodium 136 mmol/L (136-145) 05/29/20 16:25 Potassium 3.4 mmol/L (3.5-5.1) L 05/29/20 16:25 Chloride 103 mmol/L (98-107) 05/29/20 16:25 Carbon Dioxide 27 mmol/L (21-32) 05/29/20 16:25 Anion Gap 6.0 (3-11) 05/29/20 16:25 BUN 15 mg/dl (7-18) 05/29/20 16:25 Creatinine 0.95 mg/dl (0.6-1.4) 05/29/20 16:25 Est Cr Clr Drug Dosing 92.0 ml/min 05/29/20 16:25 Est GFR ( Amer) 107.0 05/29/20 16:25 Est GFR (Non-Af Amer) 92.3 05/29/20 16:25 BUN/Creatinine Ratio 15.7 (10-20) 05/29/20 16:25 Glucose 83 mg/dl (70-99) 05/29/20 16:25 Calcium 9.1 mg/dl (8.5-10.1) 05/29/20 16:25 Total Bilirubin 0.3 mg/dl (0.2-1) 05/29/20 16:25 AST 18 U/L (15-37) 05/29/20 16:25 ALT 36 U/L (12-78) 05/29/20 16:25 Alkaline Phosphatase 63 U/L (45-117) 05/29/20 16:25 Troponin I < 0.015 ng/ml (0-0.045) 05/29/20 16:25 Total Protein 7.8 gm/dl (6.4-8.2) 05/29/20 16:25 Albumin 3.9 gm/dl (3.4-5.0) 05/29/20 16:25 Globulin 3.9 gm/dl (2.5-4.0) 05/29/20 16:25 Albumin/Globulin Ratio 1.0 (0.9-2) 05/29/20 16:25 Lipase 127 U/L (73-393) 05/29/20 16:25 Diagnostic Findings CTA chest, abdomen, pelvis 1. Normal caliber aorta. No evidence for dissection. 2. No acute process within the chest, abdomen, or pelvis. 3. Additional findings as described above. EKG as per my interpretation: Rate 65, NSR, normal axis, no ischemia
[2020-05-29 22:35] LABS: Magnesium 2.4 mg/dl (1.8-2.4); Troponin I < 0.015 ng/ml (0-0.045)
[2020-05-29] MEDS: NICOTINE 7 MG/24 HR TDSY TD SCH (22:35)
[2020-05-30] MEDS ORDERED: ACETAMINOPHEN 325 MG TAB PO PRN (00:11)
[2020-05-30] MEDS ORDERED: MoRPHine SULFATE 4 MG/ML 1 ML CARP\\VIAL IV PRN (00:11)
[2020-05-30] MEDS ORDERED: traMADol HCL 50 MG TABLET PO PRN (00:11)
[2020-05-30] MEDS ORDERED: NITROGLYCERIN SL 0.4 MG/TAB TAB SL PRN (00:11)
[2020-05-30] MEDS ORDERED: PROMETHAZINE HCL 12.5 MG in SODIUM CHLORIDE 0.9% 50 ML IV PRN (00:11)
[2020-05-30] MEDS ORDERED: LORazepam 0.5 MG/1 ML VIAL IV PRN (00:11)
[2020-05-30] MEDS ORDERED: POTASSIUM CHLORIDE 40 MEQ in D5W AND NSS 1,000 ML IV SCH (01:00)
[2020-05-30 01:40] LABS: Thyroid Stimulating Hormone 0.572 uIu/ml (0.300-4.500)
[2020-05-30 02:17] LABS: Lyme Ab IgG w/WB Rflx Negative (Negative); Lyme Ab IgM w/WB Rflx Negative (Negative)
[2020-05-30] MEDS ORDERED: FLUTICASONE/VILANTEROL 200/25MCG 14 PUFFS/INHALER INH PRN (04:35)
[2020-05-30 06:19] LABS: Basophils # (auto) 0.03 K/uL (0-0.2); Basophils % (auto) 0.5 %; Eosinophils # (auto) 0.13 K/uL (0-0.5); Eosinophils % (auto) 2.1 %; Hematocrit (blood only) 41.4 % (42-52); Hemoglobin 14.4 g/dL (14.0-18.0); Immature Granulocytes # (auto) 0.01 K/uL (0.00-0.02); Immature Granulocytes % (auto) 0.2 %; Lymphocytes % (auto) 31.9 %; Mean Corpuscular Hemoglobin 31.7 pg (25-34); Mean Corpuscular Hgb Conc 34.8 g/dL (32-36); Mean Corpuscular Volume 91.2 fL (80-100); Mean Platelet Volume 10.6 fL (7.4-10.4); Monocytes # (auto) 0.75 K/uL (0.11-0.59); Neutrophils # (auto) 3.35 K/uL (1.4-6.5); Neutrophils % (auto) 53.3 %; Platelet Count 239 K/uL (130-400); RDW Standard Deviation 43.7 fL (36.4-46.3); Red Blood Count 4.54 M/uL (4.7-6.1); White Blood Count 6.27 K/uL (4.8-10.8)
[2020-05-30 06:30] LABS: Partial Thromboplastin Time 27.9 Seconds (21.0-31.0)
[2020-05-30 07:22] LABS: BUN Creatinine Ratio 22.3 (10-20); Blood Urea Nitrogen 19 mg/dl (7-18); Calcium 8.4 mg/dl (8.5-10.1); Carbon Dioxide 27 mmol/L (21-32); Chloride 108 mmol/L (98-107); Chol HDL Ratio 3; Cholesterol 160 mg/dl (0-200); Est GFR (African American) 117.5; Est GFR (Non-African American) 101.4; Glucose 105 mg/dl (70-99); HDL Cholesterol 59 mg/dl; LDL Cholesterol Calculated 85 mg/dl; Sodium 140 mmol/L (136-145); Triglycerides 82 mg/dl (0-150); Troponin I < 0.015 ng/ml (0-0.045); VLDL Cholesterol 16 mg/dl
[2020-05-30 07:57] VITALS: O2SAT 96
[2020-05-30] MEDS ORDERED: ENOXAPARIN INJ 40 MG/0.4 ML SYR SQ SCH (09:00)
[2020-05-30] MEDS ORDERED: ASPIRIN 81 MG ECTAB PO SCH (09:00)
[2020-05-30] MEDS ORDERED: ATORVASTATIN 40 MG TAB PO SCH (09:00)
[2020-05-30] MEDS ORDERED: FAMOTIDINE 40 MG TABLET PO SCH (09:00)
[2020-05-30] MEDS ORDERED: PANTOprazole 40 MG TAB PO SCH (09:00)
[2020-05-30] MEDS: NICOTINE 7 MG/24 HR TDSY TD SCH (10:19)
--- NOTE | 2020-05-30 10:27 | Cardiology Consultation ---
Date of Consultation May 30, 2020 Assessment & Plan (1) Chest pain: (2) Smoking: It was my pleasure to see Mr. Vasquez in consultation today. He underwent stress echocardiogram and performed at a very high level without any ischemic changes. Upon physical examination his right fifth rib is stuck in exhalation. 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 Mcdermott in the musculoskeletal [place]. Okay to CT from a cardiac standpoint. History of Present Illness Reason for Consultation: chest pain Requesting Physician: Dr. Ma Attending Physician: Miryam Gibson, History of Present Illness Mr. Vasquez is a very pleasant 49-year-old gentleman who presented to [facility] on 05/29/2020 with complaints of chest pain. He states that earlier that day he was sitting at his computer during work when he suddenly developed a dull achy right-sided chest pain. He states that the aches seem to stay right across his right sternal border and then radiates straight through to his back like an arrow. He states it was worse with deep inhalation and denied any associated shortness of breath, diaphoresis, nausea, lightheadedness, diz ziness or syncope. He denies any previous similar episodes. States that this is different than his normal heartburn discomfort. Allergies Allergy/AdvReac Type Severity Reaction Status Date / Time No Known Allergies Allergy Verified 05/29/20 16:51 Home Medications Home Medications Medication Instructions Recorded Confirmed Type albuterol sulfate 2 puff INHALATION Q4H PRN 07/16/19 05/29/20 History albuterol sulfate 2.5 mg INHALATION QID PRN 07/16/19 05/29/20 History atorvastatin [Lipitor] 40 mg PO DAILY 07/16/19 05/29/20 History famotidine [Pepcid] 40 mg PO BID 07/16/19 05/29/20 History fluticasone propion-salmeterol 1 ea INHALATION BID PRN 07/16/19 05/29/20 History [Advair Diskus] fluticasone propionate [Flonase 2 spray INTRANASAL DAILY PRN 07/16/19 05/29/20 History Allergy Relief] montelukast 10 mg PO HS 07/16/19 05/29/20 History pantoprazole [Protonix] 40 mg PO DAILY 07/16/19 05/29/20 History dimethyl fumarate 240 mg 240 mg PO BID #180 cap 03/26/20 05/29/20 Rx capsule,delayed release cholecalciferol (vitamin D3) 5,000 unit PO DAILY 05/29/20 05/29/20 History [Vitamin D3] nicotine [Nicoderm CQ] 1 patch TRANSDERMAL DAILY #14 ea 05/30/20 Rx Patient History Medical History Acute bronchitis Bilateral inguinal hernia Chest pain Dry socket Lateral epicondylitis MS (multiple sclerosis) Precordial chest pain Substernal chest pain Tobacco abuse Viral URI with cough Surgical History H/O umbilical hernia repair Social History Smoking Status: Current every day smoker Cigarettes Per Day: 10; Do You Dip or Chew Tobacco: No; Hx Alcohol Use: Yes Alcohol type: beer Hx Substance Use: No Preferred Language: Djiboutian Communication Ability: Effective Seo Manager Required: No Beliefs That Will Affect Care: None Current Living Situation: Spouse Other Information That Helps Us Care for You: No Feels Safe at Home: Yes Safety Concerns: Feels Safe At This Time Assistive Devices: None Review of Systems Review of Systems: All systems reviewed & are unremarkable except as noted in HPI & below Physical Exam Physical Exam: Physical Exam: General: Awake, alert and oriented x 3. No acute distress. HEENT: Normocephalic, atraumatic. Pupils equal, round and reactive to light and accommodation. Extraocular muscles are intact. Anicteric sclera. Moist mucous membranes. Neck: No JVD. No bruit. Cardiovascular: Regular. No S-4. Normal S-1 and S-2. No S-3. No murmurs, rubs or gallops. Pulmonary: Clear to auscultation bilaterally. No rales, rhonchi, or wheezing. Abdomen: Bowel sounds x 4, soft. No rebound, guarding or tenderness. No organomegaly. Extremities: No clubbing, cyanosis or edema. +2 pedal pulses bilaterally. Skin: Warm and dry. Musculoskeletal: Right fifth rib stuck in exhalation. Results & Data ([facility]) Vital Signs (Past 12 Hours) Vital Signs Temp Pulse Pulse Resp BP BP Pulse Ox 05/30/20 07:56 37.0 C 56 L 17 105/67 96 05/30/20 07:25 54 L 05/30/20 04:07 36.8 C 54 L 16 112/61 98 05/30/20 00:58 55 L 05/30/20 00:11 36.7 C 72 16 134/70 95 05/29/20 23:00 64 17 115/64 96 05/29/20 22:37 56 L 18 128/76 94
[2020-05-30 12:03] VITALS: BP 103/68; PULSE 62; TEMP 97.9
--- NOTE | 2020-05-30 12:13 | Discharge Summary ---
Date of Service May 30, 2020 Admission HPI Per Admitting Provider History obtained from patient and records. Medical history significant for COPD, hyperlipidemia, multiple sclerosis as per records, appendiceal carcinoid status post surgery, DAMON (CPAP noncompliance), ongoing tobacco abuse. Last confinement 2014 for chest pain. Stress echo negative. Patient was sitting doing computer work this afternoon when he experienced achy right-sided chest pain going to the back without other symptoms. No cough, no S OB, no fever, no chills. Different from reflux. No prior episodes. Symptoms resolving upon arrival at the ER. MEDICAL HISTORY: As above. SURGERIES: He has had an appendectomy, hernia repair. Sinus surgery, vasectomy FAMILY HISTORY: Heart disease. Throat cancer. PERSONAL AND SOCIAL HISTORY: 8 cigarettes a day, occasional EtOH intake, on disability. Admission Exam Per Admitting Provider GENERAL: Comfortable, no respiratory distress SKIN: Normal color, warm HEENT: [place] palpebral conjunctivae, no ptosis, dry buccal mucosa NECK : Supple, no tenderness CHEST : CTA, no tenderness HEART : Bradycardic, no obvious murmurs ABDOMEN: Some distention, nontender EXTREMITIES : No LE swelling/tenderness, no other conspicuous deformities noted NEUROLOGIC : Coherent, no facial asymmetry, no other gross focality Principal Diagnosis Atypical chest pain Smoking Discharge Exam CONSTITUTIONAL: WNWD, vitals as above, generally well-appearing EYES: normal conjunctivae, no scleral icterus ENT: external ear and nose normal, MMM RESPIRATORY: clear to auscultation bilaterally, no crackles, rales or wheezes, normal respiratory effort CARDIOVASCULAR: regular rate and rhythm, S1 and 2 heard without murmurs, gallops or rubs, no JVD, no peripheral edema GASTROINTESTINAL: soft, nontender, nondistended MUSCULOSKELETAL: strength 5/5 throughout, head is normocephalic and atraumatic SKIN: warm and dry NEUROLOGIC: CN 2-12 grossly intact, no sensory deficit, normal cognition, normal speech, no tremor. No gross focal deficits. PSYCHIATRIC: alert cooperative and oriented to person, place and time. Discharge Data Allergies Allergy/AdvReac Type Severity Reaction Status Date / Time No Known Allergies Allergy Verified 05/29/20 16:51 Consultations 05/29/20 21:18 ED Decision to Admit Stat 05/30/20 09:29 Consult Cardiology Routine Ordered Studies 05/29/20 18:01 CT angio chest dissec wo/w con Stat 05/29/20 19:07 CT angio abdomen pelvis w con Stat Hospital Course (1) Atypical chest pain: The patient is a 49-year-old man who came in to the ER with concerns of chest and back pain. He had associated symptoms of diaphoresis and lightheadedness. Risk factors for CAD included early heart disease in his father, active smoking and high cholesterol on statin therapy. He was admitted to the hospitalist service and cardiac enzymes were trended and negative. Cardiac telemetry monitoring revealed sinus rhythm overnight with a heart rate in the 50s to 60s on average. The following morning the chest pain had resolved and cardiology was consulted for a stratification and recommendations. He underwent a dobutamine stress echocardiogram which was negative for inducible ischemia. At time of discharge he was hemodynamically stable and afebrile and oxygenating well on room air. He was mentating and ambulating at baseline and asymptomatic with complete resolution of initial symptoms. He was sent home in stable condition with close primary care follow-up recommended. It was strongly recommended he quit smoking and he was provided nicotine patches to pursue this effort. He verbalized intent to comply. (2) Smoking: Total Time Total Time Spent Total Time Spent (In Minutes): 30 Total Time Includes: Examination of the Patient, Discharge Planning, Medication Reconciliation and Communication With Other Providers Discharge Plan Discharge Items Patient Disposition: Home - Self-Care Reason For Visit: CHEST PAIN Discharge Diagnosis: Atypical chest pain Smoking Condition on Discharge: Good Activity: Resume your previous activity Non-emergency contact: Primary Care Provider Call non-emergency contact if: you have any medication questions, your symptoms worsen and your pain is worsening Follow-up/Referrals: Ivan Izaguirre, [Primary Care Provider] - 06/03/20 1:40 pm Diet: Regular Addtl Attending Provider Instructions: Please take all medications as instructed on discharge list below. It is imperative that you quit smoking as this is bad for your health and increases your risk for heart disease. Please use the Nicoderm patches prescribed to help you quit smoking. Your primary care physician (PCP) can wean you down in dosage over the next month or so. It is recommended that you follow-up with your PCP within 1 week to ensure you are still doing well after hospital discharge and to ensure your pain did not return. At this time, you may want to consider a recheck of your potassium (non-fasting bloodwork) as this was slightly low on admission to the hospital. This may be ordered by your PCP. It was a pleasure taking care of you! Please call if you have any questions or problems. You can reach a [facility] hospitalist on duty at [facility] 24 hours a day by calling [phone]. Take care of yourself. Miryam Gibson, DO [facility]ist Pending Studies at Discharge: No Stand-Alone Forms: My [facility], Smoking Cessation Medications and DC Order Prescriptions: New nicotine [Nicoderm CQ] 21 mg/24 hr patch 24 hour 1 patch transdermal DAILY Qty: 14 RF: 1 Continued Tecfidera 240 mg capsule,delayed release(DR/EC) 240 mg PO BID Qty: 180 RF: 3 atorvastatin [Lipitor] 40 mg tablet 40 mg PO DAILY RF: 0 albuterol sulfate 2.5 mg /3 mL (0.083 %) Solution For Nebulization 2.5 mg INHALATION QID PRN (Reason: Shortness Of Breath Or Wheezing) RF: 0 famotidine [Pepcid] 40 mg tablet 40 mg PO BID RF: 0 pantoprazole [Protonix] 40 mg tablet,delayed release (DR/EC) 40 mg PO DAILY RF: 0 fluticasone propion-salmeterol [Advair Diskus] 500-50 mcg/dose blister with device 1 ea INHALATION BID PRN (Reason: Shortness Of Breath Or Wheezing) RF: 0 montelukast 10 mg Tablet 10 mg PO HS RF: 0 albuterol sulfate 90 mcg/actuation HFA aerosol inhaler 2 puff INHALATION Q4H PRN (Reason: Wheezing) RF: 0 fluticasone propionate [Flonase Allergy Relief] 50 mcg/actuation [place],Suspension 2 spray INTRANASAL DAILY PRN (Reason: Allergy Symptoms) RF: 0 cholecalciferol (vitamin D3) [Vitamin D3] 125 mcg (5,000 unit) Tablet 5,000 unit PO DAILY RF: 0 Discharge Orders: Discharge Order (Routine); Ordered 05/30/20 Ordered By: Miryam Bond/Other Patient Handouts: Your Heart Is at Risk, Warning Signs of a Heart Attack, Nicotine skin patches Admission Data Admit Date/Time: 05/29/20 22:17 Attending Provider: Miryam Gibson Admit Provider: Ryan Ruby Primary Care Provider: Ivan Izaguirre Other Providers: Ryan Ruby ; David Gomes Other Interventions: Discharge Summary Assessment (RN) Last Done: 05/30/20 12:22
--- NOTE | 2020-05-30 16:53 | Electrocardiogram Report ---
Test Reason : Blood Pressure : / mmHG Vent. Rate : 067 BPM Atrial Rate : 067 BPM P-R Int : 180 ms QRS Dur : 090 ms QT Int : 404 ms P-R-T Axes : 060 051 051 degrees QTc Int : 426 ms Normal sinus rhythm Normal ECG When compared with ECG of 02-NOV-2016 09:56, No significant change was found Confirmed by Frank Arriola ([id number]) on 05/30/2020 4:53:23 PM Referred By: REFERRED SELF Confirmed By:Cesar Arriola
[2020-05-30] MEDS ORDERED: MONTELUKAST SODIUM 10 MG TABLET PO SCH (21:00)
== END 2020-05-30 12:51 | disposition home or self-care (01) ==
LOC: ED 15:52 → 2E 15:52